=== PATIENT | female | born 1945 | race Caucasian/White ===

== ENCOUNTER 2016-10-04 17:10 | Inpatient (IN) | payer MEDICARE, OTHER ==
[~2016-10-04] VITALS: Ht 157.5 cm; Wt 109.0 kg
[~2016-10-04 17:10] MED LIST: ASPI81TA82 PO; CORE6.25 PO; ENAL10TA7 PO; MINO2.5 PO
[2016-10-04 17:12] VITALS: BP 185/87; PULSE 110; RESP 20; TEMP 100; O2SAT 93
[2016-10-04] MEDS ORDERED: SODIUM CHLOR 0.9% 1000 ML INJ 1,000 ML IV SCH (19:03)
--- NOTE | 2016-10-04 19:09 | PD ---
HPI Chief Complaint: Abdominal Pain Time Seen by Provider: 18:58 Travel History International Travel<30 days: No Contact w/Intl Traveler<30days: No Traveled to known affect area: No History of Present Illness HPI 70-year-old female presents with family members for evaluation of abdominal pain. Symptoms started this morning. The pain is an aching pain in the left lower quadrant which is constant with no aggravating or relieving factors. She endorses some nausea. Denies vomiting, diarrhea or constipation, dysuria, flank pain. She does have a chronic umbilical hernia which appears bigger than usual. She reports a history of hypertension and chronic kidney disease. Primary care physician is Dr. Monsivais. No history of diverticulosis or diverticulitis. No other complaints. PFSH Past Medical History Hx Anticoagulant Therapy: No Cancer: No Cardiovascular Problems: No Chemotherapy: No Congestive Heart Failure: Yes (POSSIBLE) Cerebrovascular Accident: No Diabetes: No Diminished Hearing: No Endocrine: No GERD: Yes Genitourinary: No Hepatitis: No Hiatal Hernia: No Hypertension: Yes Immune Disorder: Yes Musculoskeletal: Yes (SEVERE ARTHRITIS LEFT HIP; ) Neurologic: No Psychiatric: No Reproductive: No Respiratory: No Thyroid Disease: No ?: Unknown Menopausal: Yes Tubal Ligation: Yes Past Surgical History Abdominal Surgery: No AICD: No Arteriovenous Shunt: No Body Medical Devices: NONE Cardiac Surgery: No Ear Surgery: No Endocrine Surgery: No Eye Surgery: No Genitourinary Surgery: No Gynecologic Surgery: Yes (TUBAL LIGATION 35 YEARS AGO) Hysterectomy: No Insulin Pump: No Joint Replacement: No Oral Surgery: Yes (TOOTH EXTRACTRIONS 20 YEARS AGO; T & A) Pacemaker: No Thoracic Surgery: No Tonsillectomy: Yes Social History Alcohol Use: No Tobacco Use: Yes (LESS THAN A PACK A DAY) Substance Use: No Allergies-Medications (Allergen,Severity, Reaction): Coded Allergies: No Known Allergies (Unverified , 10/04/16) Reported Meds & Prescriptions Reported Meds & Active Scripts Active Reported Minoxidil 10 Mg Tab 5 Mg PO BID Amlodipine (Amlodipine Besylate) Unknown Strength Tab Unknown Dose PO DAILY Enalapril (Enalapril Maleate) 20 Mg Tab 20 Mg PO BID Carvedilol 6.25 Mg Tab 6.25 Mg PO BID Aspirin DR (Aspirin) 81 Mg Tabdr 81 Mg PO DAILY Review of Systems Except as stated in HPI: all other systems reviewed are Neg Physical Exam Narrative GENERAL: Well-developed well-nourished female in no acute distress SKIN: Warm and dry. HEAD: Atraumatic. Normocephalic. EYES: Pupils equal and round. No scleral icterus. No injection or drainage. ENT: No nasal bleeding or discharge. Mucous membranes pink and moist. NECK: Trachea midline. No JVD. CARDIOVASCULAR: Regular rate and rhythm. No murmur appreciated. RESPIRATORY: No accessory muscle use. Clear to auscultation. Breath sounds equal bilaterally. GASTROINTESTINAL: Abdomen soft, tender to palpation in left lower quadrant without guarding. There is a periumbilical hernia as well. MUSCULOSKELETAL: No obvious deformities. No edema NEUROLOGICAL: Awake and alert. No obvious cranial nerve deficits. Motor grossly within normal limits. Normal speech. PSYCHIATRIC: Appropriate mood and affect; insight and judgment normal. Data Data Last Documented VS Vital Signs Date Time Temp Pulse Resp B/P Pulse Ox O2 Delivery O2 Flow Rate FiO2 10/04/16 20:04 18 10/04/16 20:03 112 147/67 Room Air 10/04/16 19:34 98 10/04/16 17:12 100.0 Orders Complete Blood Count With Diff (10/04/16 19:03) Comprehensive Metabolic Panel (10/04/16 19:03) Lipase (10/04/16 19:03) Prothrombin Time / Inr (Pt) (10/04/16 19:03) Act Partial Throm Time (Ptt) (10/04/16 19:03) Urinalysis - C+S If Indicated (10/04/16 19:03) Ct Abd/Pel W Iv Contrast(Rout) (10/04/16 19:03) Iv Access Insert/Monitor (10/04/16 19:03) Ecg Monitoring (10/04/16 19:03) Oximetry (10/04/16 19:03) Ondansetron Inj (Zofran Inj) (10/04/16 19:15) Sodium Chlor 0.9% 1000 Ml Inj (Ns 1000 M (10/04/16 19:03) Sodium Chloride 0.9% Flush (Ns Flush) (10/04/16 19:15) Morphine Inj (Morphine Inj) (10/04/16 19:15) Lactic Acid Sepsis Protocol (10/04/16 19:03) Blood Culture (10/04/16 19:03) Ice / Cold Pack PRN (10/04/16 19:06) Iohexol 350 Inj (Omnipaque 350 Inj) (10/04/16 21:12) Ciprofloxacin 400 Mg Premix (Cipro 400 M (10/04/16 22:15) Metronidazole 500 Mg Inj (Flagyl 500 Mg (10/04/16 22:15) Admit Order (Ed Use Only) (10/04/16 22:25) Labs Laboratory Tests Test 10/04/16 10/04/16 10/04/16 10:01 19:55 21:15 Lactic Acid Level 1.2 mmol/L White Blood Count 11.4 TH/MM3 Red Blood Count 4.14 MIL/MM3 Hemoglobin 11.3 GM/DL Hematocrit 34.2 % Mean Corpuscular Volume 82.8 FL Mean Corpuscular Hemoglobin 27.3 PG Mean Corpuscular Hemoglobin 33.0 % Concent Red Cell Distribution Width 15.1 % Platelet Count 227 TH/MM3 Mean Platelet Volume 8.6 FL Neutrophils (%) (Auto) 81.1 % Lymphocytes (%) (Auto) 6.9 % Monocytes (%) (Auto) 9.6 % Eosinophils (%) (Auto) 1.7 % Basophils (%) (Auto) 0.7 % Neutrophils # (Auto) 9.2 TH/MM3 Lymphocytes # (Auto) 0.8 TH/MM3 Monocytes # (Auto) 1.1 TH/MM3 Eosinophils # (Auto) 0.2 TH/MM3 Basophils # (Auto) 0.1 TH/MM3 CBC Comment DIFF FINAL Differential Comment Prothrombin Time 10.5 SEC Prothromb Time International 1.0 RATIO Ratio Activated Partial 29.4 SEC Thromboplast Time Sodium Level 143 MEQ/L Potassium Level 3.8 MEQ/L Chloride Level 107 MEQ/L Carbon Dioxide Level 25.7 MEQ/L Anion Gap 10 MEQ/L Blood Urea Nitrogen 18 MG/DL Creatinine 1.08 MG/DL Estimat Glomerular Filtration 50 ML/MIN Rate Random Glucose 132 MG/DL Calcium Level 8.2 MG/DL Total Bilirubin 0.5 MG/DL Aspartate Amino Transf 8 U/L (AST/SGOT) Alanine Aminotransferase 7 U/L (ALT/SGPT) Alkaline Phosphatase 68 U/L Total Protein 6.5 GM/DL Albumin 3.3 GM/DL Lipase 74 U/L Urine Color YELLOW Urine Turbidity CLEAR Urine pH 5.5 Urine Specific [place] 1.035 Urine Protein TRACE mg/dL Urine Glucose (UA) NEG mg/dL Urine Ketones NEG mg/dL Urine Occult Blood NEG Urine Nitrite NEG Urine Bilirubin NEG Urine Urobilinogen LESS THAN 2.0 MG/DL Urine Leukocyte Esterase NEG Urine RBC 3 /hpf Urine WBC 1 /hpf Urine Squamous Epithelial 1 /hpf Cells Urine Mucus FEW /lpf Microscopic Urinalysis Comment CULT NOT INDICATED MDM Medical Decision Making Medical Screen Exam Complete: Yes Emergency Medical Condition: Yes Medical Record Reviewed: Yes Interpretation(s) CBC WBC 11.4 with 81% neutrophils Lactic acid 1.2 CMP creatinine 1.08, GFR 58, random glucose 132 CONCLUSION: 1. Severe but uncomplicated diverticulitis of the proximal sigmoid colon. 2. Complex mass of the right kidney of concern for a small renal cell carcinoma. Outpatient abdomen MRI with and without contrast recommended. 3. Benign-appearing cysts of the left kidney. 4. Large fat containing umbilical hernia. No bowel herniation. 5. Small stones in the gallbladder. 6. Moderate hiatal hernia. 7. Severe left hip osteoarthritis. No acute bony abnormality demonstrated. Differential Diagnosis Diverticulitis, incarcerated hernia, pyelonephritis, sepsis, colitis Narrative Course 70-year-old female for left lower quadrant abdominal pain since this morning. She has a low-grade fever and tachycardia. Plan is for basic lab work, CT of the abdomen and pelvis. The patient is being given IV fluids, morphine and Zofran. Discussed results of the CT with the patient and she is agreeable with admission. iv Flagyl and Cipro been ordered. Diagnosis Primary Impression: Diverticulitis Qualified Code: K57.92 - Diverticulitis of intestine without perforation or abscess without bleeding, unspecified part of intestinal tract Admitting Information Admitting Physician Requests: Admit Chidi Guerra Oct 04, 2016 19:09
[2016-10-04] MEDS ORDERED: MORPHINE SULFATE 8 MG/ML INJ IV PUSH ONE (19:15)
[2016-10-04] MEDS ORDERED: ONDANSETRON HCL 4 MG/2 ML VIAL IVP ONE (19:15)
[2016-10-04] MEDS ORDERED: SODIUM CHLORIDE 0.9% FLUSH 5 ML FLUSH IVF PRN (19:15)
[2016-10-04 19:34] VITALS: BP 189/85; PULSE 110; PULSE 19; RESP 18; O2SAT 98
[2016-10-04] MEDS ORDERED: CARV6.252 PO (19:50)
[2016-10-04] MEDS ORDERED: ENAL10TA7 PO (19:50)
[2016-10-04] MEDS ORDERED: ENAL20TA PO (19:50)
[2016-10-04] MEDS ORDERED: AMLO5TAB2 PO (19:50)
[2016-10-04] MEDS ORDERED: ASPI81TA5 PO (19:50)
[2016-10-04] MEDS ORDERED: MINO10TA PO (19:51)
[2016-10-04 20:03] VITALS: BP 147/67; PULSE 112; RESP 18
[2016-10-04 20:16] LABS: AUTOMATED NEUTROPHIL # 9.2 TH/MM3 (1.8-7.7); BASOPHIL # 0.1 TH/MM3 (0-0.2); BASOPHIL % 0.7 % (0.0-2.0); EOSINOPHIL # 0.2 TH/MM3 (0-0.4); EOSINOPHIL % 1.7 % (0.0-4.0); HEMATOCRIT 34.2 % (35.0-46.0); HEMO FLAGS DIFF FINAL; LYMPH % 6.9 % (9.0-44.0); LYMPHOCYTE # 0.8 TH/MM3 (1.0-4.8); MEAN CELL VOLUME 82.8 FL (80.0-100.0); MEAN CORPUSCULAR HEMOGLOBIN 27.3 PG (27.0-34.0); MONO % 9.6 % (0.0-8.0); NEUT % 81.1 % (16.0-70.0); PLATELET COUNT 227 TH/MM3 (150-450); RED BLOOD COUNT 4.14 MIL/MM3 (4.00-5.30); RED CELL DISTRIBUTION WIDTH 15.1 % (11.6-17.2); WHITE BLOOD COUNT 11.4 TH/MM3 (4.0-11.0)
[2016-10-04 20:27] LABS: APTT (PATIENT) 29.4 SEC (24.3-30.1); PROTHROMBIN TIME - PATIENT 10.5 SEC (9.8-11.6)
[2016-10-04 20:40] LABS: ANION GAP 10 MEQ/L (5-15); AST (GOT) 8 U/L (15-37); BICARBONATE 25.7 MEQ/L (21.0-32.0); BLOOD UREA NITROGEN 18 MG/DL (7-18); CHLORIDE 107 MEQ/L (98-107); GLOMERULAR FILTRATION RATE 50 ML/MIN (>89); POTASSIUM 3.8 MEQ/L (3.5-5.1); SODIUM (NA) 143 MEQ/L (136-145)
[2016-10-04 20:43] LABS: ALKALINE PHOSPHATASE 68 U/L (45-117); ALT (GPT) 7 U/L (10-53); TOTAL BILIRUBIN ADULT 0.5 MG/DL (0.2-1.0)
[2016-10-04] MEDS ORDERED: IOHEXOL 350 MG/ML 10 ML VIAL (for RAD DIAG) IV ONE (21:12)
--- NOTE | 2016-10-04 21:40 | RADRPT ---
EXAM DATE/TIME: 10/04/2016 21:08 [facility] COMPARISON: US KIDNEY/RENAL/BLADDER, December 12, 2013, 18:07. INDICATIONS : Left sided abdominal pain since yesterday. IV CONTRAST: 96 cc Omnipaque 350 (iohexol) IV ORAL CONTRAST: No oral contrast ingested. RADIATION DOSE: 22.44 CTDIvol (mGy) MEDICAL HISTORY : Congestive heart failure. Hypertension. Hernia, umbilical.Renal disease. SURGICAL HISTORY : Tubal ligation. ENCOUNTER: Initial ACUITY: 1 day PAIN SCALE: 4/10 LOCATION: Left lower quadrant TECHNIQUE: Volumetric scanning of the abdomen and pelvis was performed. Using automated exposure control and ad justment of the mA and/or kV according to patient size, radiation dose was kept as low as reasonably achievable to obtain optimal diagnostic quality images. FINDINGS: LOWER LUNGS: The visualized lower lungs are clear. LIVER: 3.1 cm cyst of the left hepatic lobe. There are several small stones in the gallbladder. No inflammat ory changes. No duct stone or ductal dilatation. SPLEEN: Normal size without lesion. PANCREAS: Within normal limits. KIDNEYS: There are several cysts of the left kidney measuring up to 2.3 cm in size. On the right, there is a f airly vague low density lesion posteromedially of the mid zone estimated at about 2.2 cm in size. It appears to have at approximately 14 mm enhancing component within it. ADRENAL GLANDS: Within normal limits. VASCULAR: There is no aortic aneurysm. BOWEL/MESENTERY: There is severe diverticulitis of the proximal sigmoid colon in the anterior aspect of the left lower quadrant. No drainable fluid. No free air. No obstruction. The patient has a moderate-sized hiatal h ernia. ABDOMINAL WALL: There is an umbilical hernia that measures approximately 2 cm across. About 6.2 x 7.5 cm collection o f fat has herniated through. No bowel herniation. RETROPERITONEUM: There is no lymphadenopathy. BLADDER: No wall thickening or mass. REPRODUCTIVE: Within normal limits. INGUINAL: There is no lymphadenopathy or hernia. MUSCULOSKELETAL: No acute bony abnormality demonstrated. Severe osteoarthritis seen of the left hip. CONCLUSION: 1. Severe but uncomplicated diverticulitis of the proximal sigmoid colon. 2. Complex mass of the right kidney of concern for a small renal cell carcinoma. Outpatient abdomen M RI with and without contrast recommended. 3. Benign-appearing cysts of the left kidney. 4. Large fat containing umbilical hernia. No bowel herniation. 5. Small stones in the gallbladder. 6. Moderate hiatal hernia. 7. Severe left hip osteoarthritis. No acute bony abnormality demonstrated. Jeremy Britton MD on October 04, 2016 at 21:32 Board Certified Radiologist. This report was verified electronically.
[2016-10-04 22:10] LABS: BLOOD, URINE NEG (NEG); GLUCOSE,URINE NEG (NEG); KETONE, URINE NEG (NEG); MUCUS URINE FEW /lpf (OCC); NITRITE,URINE NEG (NEG); PH, URINE 5.5 (5.0-8.5); SQUAMOUS EPITHELIAL CELL URINE 1 /hpf (0-5); URINE COLOR YELLOW (YELLW/STRAW)
[2016-10-04 22:11] LABS: COMMENT (UR) CULT NOT INDICATED; CULTURE IF INDICATED CULT NOT INDICATED
[2016-10-04] MEDS ORDERED: metroNIDAZOLE 500 MG INJ 100 ML IV ONE (22:15)
[2016-10-04] MEDS ORDERED: CIPROFLOXACIN 400 MG PREMIX 200 ML IV ONE (22:15)
[2016-10-04 22:30] VITALS: BP 160/90; PULSE 111; RESP 16; O2SAT 94
[2016-10-04] MEDS ORDERED: ACETAMINOPHEN 325 MG TAB PO PRN (22:30)
[2016-10-04] MEDS ORDERED: MORPHINE SULFATE 4 MG/ML INJ IV PRN (22:30)
[2016-10-04] MEDS ORDERED: SODIUM CHLORIDE 0.9% FLUSH 5 ML FLUSH FLUSH PRN (22:30)
[2016-10-04] MEDS ORDERED: BISACODYL 10 MG SUPP PR PRN (22:30)
[2016-10-04] MEDS ORDERED: ONDANSETRON HCL 4 MG/2 ML VIAL IVP PRN (22:30)
--- NOTE | 2016-10-04 22:32 | HHI.HP ---
[facility] Heraclio Christian MD Admission Diagnosis Diverticulitis Diagnoses: (1) Sepsis Diagnosis: Principal (2) Diverticulitis Diagnosis: Principal (3) Renal insufficiency Diagnosis: Principal (4) HTN (hypertension) Diagnosis: Principal (5) Renal mass, right Diagnosis: Principal Travel History International Travel<30 Days: No Contact w/Intl Traveler <30 Da: No Traveled to Known Affected Are: No History of Present Illness This is a 70-year-old female with a PMH of Arthritis, HTN and Hyperlipidemia who was brought to the ER by family secondary to complaints of severe LLQ abdominal pain starting earlier today. Reports associated nausea but no vomiting. Denies fever, chills or diarrhea. On arrival, BP 185/87, HR 110, O2 sat 93% on RA, Temp 100.0. WBC 11.4. Creatinine 1.08, previously 1.23 on . UA negative. CT Abd/Pelvis w/ severe but uncomplicated diverticulitis proximal sigmoid colon, complex mass of right kidney concerning for small renal cell carcinoma with outpatient MRI recommended, large fat-containing umbilical hernia. S/p Cipro/Flagyl in ER. Review of Systems Except as stated in HPI: all other systems reviewed are Neg ROS: 14 point review of systems otherwise negative. Past Family Social History Past Medical History PMH: Arthritis, HTN and Hyperlipidemia Past Surgical History PAST SURGICAL HISTORY: Tubal Ligation, Dental Extraction, Tonsillectomy Allergies: Coded Allergies: No Known Allergies (Unverified , 10/04/16) Family History PAST FAMILY HISTORY: Reviewed. No h/o DM or CAD Social History PAST SOCIAL HISTORY: Positive for tobacco abuse. Negative for alcohol or drugs. Physical Exam Vital Signs Vital Signs Date Time Temp Pulse Resp B/P Pulse Ox O2 Delivery O2 Flow Rate FiO2 10/04/16 20:04 18 10/04/16 20:03 112 18 147/67 Room Air 10/04/16 19:35 18 10/04/16 19:34 110 18 189/85 98 10/04/16 17:12 100.0 110 20 185/87 93 Room Air Physical Exam PE: GENERAL: Pleasant elderly white female in no acute distress, sitting up in stretcher. Family at bedside. HEENT: PERRLA, EOMI. No scleral icterus or conjunctival pallor. No lid lag or facial droop. CARDIOVASCULAR: Regular rate and rhythm. No obvious murmurs to auscultation. No chest tenderness to palpation. RESPIRATORY: No obvious rhonchi or wheezing. Clear to auscultation. Breath sounds equal bilaterally. GASTROINTESTINAL: Abdomen soft, LLQ and left flank tenderness to palpation, nondistended. BS normal. MUSCULOSKELETAL: Extremities without clubbing, cyanosis, or edema. No obvious deformities. NEUROLOGICAL: Awake, alert and oriented x4. No focal neurologic deficits. Moving both upper and lower extremities spontaneously. Laboratory Laboratory Tests Test 10/04/16 10/04/16 10/04/16 10:01 19:55 21:15 Lactic Acid Level 1.2 White Blood Count 11.4 Red Blood Count 4.14 Hemoglobin 11.3 Hematocrit 34.2 Mean Corpuscular Volume 82.8 Mean Corpuscular Hemoglobin 27.3 Mean Corpuscular Hemoglobin 33.0 Concent Red Cell Distribution Width 15.1 Platelet Count 227 Mean Platelet Volume 8.6 Neutrophils (%) (Auto) 81.1 Lymphocytes (%) (Auto) 6.9 Monocytes (%) (Auto) 9.6 Eosinophils (%) (Auto) 1.7 Basophils (%) (Auto) 0.7 Neutrophils # (Auto) 9.2 Lymphocytes # (Auto) 0.8 Monocytes # (Auto) 1.1 Eosinophils # (Auto) 0.2 Basophils # (Auto) 0.1 CBC Comment DIFF FINAL Differential Comment Prothrombin Time 10.5 Prothromb Time International 1.0 Ratio Activated Partial 29.4 Thromboplast Time Sodium Level 143 Potassium Level 3.8 Chloride Level 107 Carbon Dioxide Level 25.7 Anion Gap 10 Blood Urea Nitrogen 18 Creatinine 1.08 Estimat Glomerular Filtration 50 Rate Random Glucose 132 Calcium Level 8.2 Total Bilirubin 0.5 Aspartate Amino Transf 8 (AST/SGOT) Alanine Aminotransferase 7 (ALT/SGPT) Alkaline Phosphatase 68 Total Protein 6.5 Albumin 3.3 Lipase 74 Urine Color YELLOW Urine Turbidity CLEAR Urine pH 5.5 Urine Specific [place] 1.035 Urine Protein TRACE Urine Glucose (UA) NEG Urine Ketones NEG Urine Occult Blood NEG Urine Nitrite NEG Urine Bilirubin NEG Urine Urobilinogen LESS THAN 2.0 Urine Leukocyte Esterase NEG Urine RBC 3 Urine WBC 1 Urine Squamous Epithelial 1 Cells Urine Mucus FEW Microscopic Urinalysis Comment CULT NOT INDICATED Date/Time Procedure Status Source Growth 10/04/16 20:00 Aerobic Blood Culture Received Blood Peripheral Pending 10/04/16 20:00 Anaerobic Blood Culture Received Blood Peripheral Pending Result Diagram: 10/04/16195410/04/161954 Assessment and Plan Problem List: (1) Sepsis ICD Code: A41.9 Status: Acute (2) Diverticulitis ICD Code: K57.92 Status: Acute (3) Renal insufficiency ICD Code: N28.9 Status: Acute (4) Renal mass, right ICD Code: N28.89 Status: Acute (5) HTN (hypertension) ICD Code: I10 Status: Acute Assessment and Plan A/P: 1. Sepsis: Temp 100.0, HR 110, Source-Diverticulitis. S/p Blood Cultures, IV Cipro/Flagyl in ER. Follow up cultures, continue IV Abx, IVF for hydration. 2. Diverticulitis: CT Abd/Pelvis w/ severe but uncomfortable diverticulitis the proximal sigmoid colon, images reviewed by me. Continue IV Abx as above. Analgesics/antiemetics as needed. 3. Renal Insufficiency: Chronic. Creatinine 1.08, previously 1.23 on . U/a negative for UTI. Continue IVF, repeat labs in am. Hold Enalapril 4. Right Renal Mass: CT Abd/Pelvis w/ small right renal mass concerning for renal cell carcinoma, recommendation for outpatient MRI. Findings discussed w/ patient and family, they will follow w/ PCP for further evaluation. 5. HTN: BP 180's on arrival, likely compounded by pain complaints, currently 140's systolic. Will monitor. 6. DVT Prophylaxis: SCD/teds. 7. Social work for DC planning as needed. 8. Case discussed at length with ER physician. Physician Certification 2 Midnight Certification Type: Admission for Inpatient Services Order for Inpatient Services The services are ordered in accordance with Medicare regulations or non- Medicare payer requirements, as applicable. In the case of services not specified as inpatient-only, they are appropriately provided as inpatient services in accordance with the 2-midnight benchmark. Estimated LOS (days): 2 days is the estimated time the patient will need to remain in the hospital, assuming treatment plan goals are met and no additional complications. Post-Hospital Plan: Not yet determined Problem Qualifiers (1) Diverticulitis: Qualified Code: K57.92 - Diverticulitis of intestine without perforation or abscess without bleeding, unspecified part of intestinal tract Jesusita Conn MD Oct 04, 2016 22:31
[2016-10-04] MEDS: SODIUM CHLOR 0.9% 1000 ML INJ 1,000 ML IV SCH (22:49)
[2016-10-05] VITALS (8 sets, daily range): BP systolic 113–165; BP diastolic 58–82; PULSE 83–104; RESP 16–21; TEMP 96.5–98.3; O2SAT 91–97
[2016-10-05] MEDS: metroNIDAZOLE 500 MG INJ 100 ML IV SCH ×3 (04:48→20:50)
[2016-10-05 05:34] LABS: ALT (GPT) 8 U/L (10-53); ANION GAP 10 MEQ/L (5-15); AST (GOT) 5 U/L (15-37); BLOOD UREA NITROGEN 16 MG/DL (7-18); CHLORIDE 106 MEQ/L (98-107); GLOMERULAR FILTRATION RATE 51 ML/MIN (>89); POTASSIUM 3.8 MEQ/L (3.5-5.1); SODIUM (NA) 142 MEQ/L (136-145)
[2016-10-05 05:37] LABS: ALKALINE PHOSPHATASE 65 U/L (45-117); TOTAL BILIRUBIN ADULT 0.6 MG/DL (0.2-1.0)
[2016-10-05] MEDS: SODIUM CHLORIDE 0.9% FLUSH 5 ML FLUSH FLUSH SCH ×2 (08:03→20:56)
[2016-10-05] MEDS: SODIUM CHLOR 0.9% 1000 ML INJ 1,000 ML IV SCH ×2 (08:03→18:22)
[2016-10-05] MEDS: CARVEDILOL 6.25 MG TAB PO SCH ×2 (08:03→20:50)
[2016-10-05] MEDS: CIPROFLOXACIN 400 MG PREMIX 200 ML IV SCH ×2 (08:03→20:50)
[2016-10-05 09:53] LABS: AUTOMATED NEUTROPHIL # 8.2 TH/MM3 (1.8-7.7); BASOPHIL # 0.1 TH/MM3 (0-0.2); BASOPHIL % 0.6 % (0.0-2.0); EOSINOPHIL # 0.1 TH/MM3 (0-0.4); EOSINOPHIL % 0.8 % (0.0-4.0); HEMATOCRIT 34.4 % (35.0-46.0); HEMO FLAGS DIFF FINAL; LYMPH % 7.1 % (9.0-44.0); LYMPHOCYTE # 0.7 TH/MM3 (1.0-4.8); MEAN CELL VOLUME 82.2 FL (80.0-100.0); MEAN CORPUSCULAR HEMOGLOBIN 27.9 PG (27.0-34.0); MEAN CORPUSCULAR HGB CONC 33.9 % (32.0-36.0); NEUT % 79.5 % (16.0-70.0); PLATELET COUNT 212 TH/MM3 (150-450); RED BLOOD COUNT 4.19 MIL/MM3 (4.00-5.30); WHITE BLOOD COUNT 10.3 TH/MM3 (4.0-11.0)
[2016-10-05] MEDS: ACETAMINOPHEN/HYDROcodone 325 MG/5 MG TAB PO PRN ×3 (11:34→23:33)
--- NOTE | 2016-10-05 11:50 | HHI.PR ---
Subjective Remarks started out yesterday with left lower quadrant abdominal pain no nausea or vomiting some fever and chills now she feels much better, hungry, wanting to eat, + flatus, came to ER- noted to have an umbilical hernia- this is chronic for months but they noted more prominent and protruded yesterday with discoloration ER made attempts to reduce it- per family decrease patient now having mild pain due to "they keep on pushing and pushing" never had screening colonoscopy Objective Vitals Vital Signs Date Time Temp Pulse Resp B/P Pulse Ox O2 Delivery O2 Flow Rate FiO2 10/05/16 08:00 98.0 92 16 113/69 93 10/05/16 04:30 96.5 104 20 124/58 94 10/05/16 02:00 100 16 120/71 95 Room Air 10/04/16 22:30 111 16 160/90 94 Room Air 10/04/16 20:04 18 10/04/16 20:03 112 18 147/67 Room Air 10/04/16 19:35 18 10/04/16 19:34 110 18 189/85 98 10/04/16 17:12 100.0 110 20 185/87 93 Room Air I/O 10/04/16 10/04/16 10/04/16 10/05/16 10/05/16 10/05/16 07:00 15:00 23:00 07:00 15:00 23:00 Intake Total 360 ml Balance 360 ml Intake Oral 60 ml IV Total 300 ml # Voids 1 # Bowel Movements 0 Result Diagram: 10/05/16 0917 10/05/16 0355 Imaging Last Impressions Abdomen/Pelvis CT 10/04/16 1903 Signed Impressions: Service Date/Time: Tuesday, October 04, 2016 21:08 - CONCLUSION: 1. Severe but uncomplicated diverticulitis of the proximal sigmoid colon. 2. Complex mass of the right kidney of concern for a small renal cell carcinoma. Outpatient abdomen MRI with and without contrast recommended. 3. Benign-appearing cysts of the left kidney. 4. Large fat containing umbilical hernia. No bowel herniation. 5. Small stones in the gallbladder. 6. Moderate hiatal hernia. 7. Severe left hip osteoarthritis. No acute bony abnormality demonstrated. Jeremy Britton MD Objective Remarks awake and alert, NAD anicteric lungs clear regular rhythm abdomen + umbilical hernia, abdomen soft, flabby, good bowel sounds no guarding or tenderness extremities good peripheral pulses A/P Problem List: (1) Sepsis ICD Code: A41.9 Status: Acute (2) Diverticulitis ICD Code: K57.92 Status: Acute (3) Renal insufficiency ICD Code: N28.9 Status: Acute (4) Renal mass, right ICD Code: N28.89 Status: Acute (5) HTN (hypertension) ICD Code: I10 Status: Acute Assessment and Plan A/P: Sepsis: Temp 100.0, HR 110, Source-Diverticulitis. S/p Blood Cultures, Follow up cultures, continue IV Abx- ciprofloxacin + flagyl , IVF for hydration. Diverticulitis: CT Abd/Pelvis w/ severe diverticulitis the proximal sigmoid colon, Continue IV Abx as above. Analgesics/antiemetics as needed. per patient = first episode. Never had a screening colonoscopy Umbilical Hernia- on presentation ? incarcerated as family states bluish and ER - reduce it monitor. d/w them if develops severe pain,N/V to call nurse Renal Insufficiency: Chronic. Creatinine 1.08, previously 1.23 on 12/13/13. U/ a negative for UTI. Continue IVF,Hold Enalapril Incidental Right Renal Mass: concerning for renal cell carcinoma, recommendation for outpatient MRI. Findings discussed w/ patient and family, they will follow w/ PCP for further evaluation. HTN: BP 180's on arrival, likely compounded by pain complaints, improved. Will monitor. DVT Prophylaxis: SCD/teds. Social work for DC planning as needed. Lovenox for DVT prophylaxis d/w patient and daughter if continues to feel well- start diet this pm- liquids and monitor Problem Qualifiers (1) Diverticulitis: Qualified Code: K57.92 - Diverticulitis of intestine without perforation or abscess without bleeding, unspecified part of intestinal tract Natalio Chowdhury MD Oct 05, 2016 11:49
[2016-10-05] MEDS ORDERED: ENOXAPARIN SODIUM 40 MG/0.4 ML SYRINGE SQ SCH (12:00)
[2016-10-05] MEDS ORDERED: PANTOPRAZOLE SODIUM 40 MG VIAL IV PUSH SCH (13:00)
[2016-10-06 04:00] VITALS: BP 159/72; PULSE 89; RESP 20; TEMP 96.2; O2SAT 100
[2016-10-06] MEDS: metroNIDAZOLE 500 MG INJ 100 ML IV SCH (04:12)
[2016-10-06] MEDS: SODIUM CHLOR 0.9% 1000 ML INJ 1,000 ML IV SCH (04:13)
[2016-10-06 08:00] VITALS: BP 149/70; PULSE 86; RESP 18; TEMP 99; O2SAT 95
[2016-10-06] MEDS: CIPROFLOXACIN 400 MG PREMIX 200 ML IV SCH (08:18)
[2016-10-06] MEDS: SODIUM CHLORIDE 0.9% FLUSH 5 ML FLUSH FLUSH SCH (08:18)
[2016-10-06] MEDS: CARVEDILOL 6.25 MG TAB PO SCH (08:18)
[2016-10-06] MEDS: ACETAMINOPHEN/HYDROcodone 325 MG/5 MG TAB PO PRN (08:18)
--- NOTE | 2016-10-06 10:54 | HHI.PR ---
Subjective Remarks no abdominal pain, nausea or vomiting + passing put lots of flatus feeling much much better- up and ambulating seen with family f at bedside Objective Vitals Vital Signs Date Time Temp Pulse Resp B/P Pulse Ox O2 Delivery O2 Flow Rate FiO2 10/06/16 08:00 99.0 86 18 149/70 95 10/06/16 04:00 96.2 89 20 159/72 100 10/05/16 23:43 98.0 90 19 141/65 91 10/05/16 20:00 98.3 86 21 141/66 96 10/05/16 19:50 83 10/05/16 16:52 20 10/05/16 16:00 98.3 97 16 140/60 97 10/05/16 12:00 98.1 94 18 165/82 96 I/O 10/05/16 10/05/16 10/05/16 10/06/16 10/06/16 10/06/16 07:00 15:00 23:00 07:00 15:00 23:00 Intake Total 360 ml 635 ml 958 ml 670 ml Output Total 400 ml 900 ml 600 ml Balance 360 ml 235 ml 58 ml 70 ml Intake Oral 60 ml 240 ml 240 ml 240 ml IV Total 300 ml 395 ml 718 ml 430 ml Output Urine Total 400 ml 900 ml 600 ml # Voids 1 1 # Bowel Movements 0 0 0 0 Result Diagram: 10/05/16 0917 10/05/16 0355 Imaging Last Impressions Abdomen/Pelvis CT 10/04/16 1903 Signed Impressions: Service Date/Time: Tuesday, October 04, 2016 21:08 - CONCLUSION: 1. Severe but uncomplicated diverticulitis of the proximal sigmoid colon. 2. Complex mass of the right kidney of concern for a small renal cell carcinoma. Outpatient abdomen MRI with and without contrast recommended. 3. Benign-appearing cysts of the left kidney. 4. Large fat containing umbilical hernia. No bowel herniation. 5. Small stones in the gallbladder. 6. Moderate hiatal hernia. 7. Severe left hip osteoarthritis. No acute bony abnormality demonstrated. Jeremy Britton MD Objective Remarks awake and alert, NAD anicteric lungs clear regular rhythm abdomen + umbilical hernia, abdomen soft, flabby, good bowel sounds no guarding or tenderness extremities good peripheral pulses A/P Problem List: (1) Sepsis ICD Code: A41.9 Status: Acute (2) Diverticulitis ICD Code: K57.92 Status: Acute (3) Renal insufficiency ICD Code: N28.9 Status: Acute (4) Renal mass, right ICD Code: N28.89 Status: Acute (5) HTN (hypertension) ICD Code: I10 Status: Acute Assessment and Plan A/P: Sepsis: - T down. cultures negative - so far. -Diverticulitis. change to po ciprofloxacin + flagyl , Diverticulitis: CT Abd/Pelvis w/ severe diverticulitis the proximal sigmoid colon, Continue IV Abx as above. Analgesics/antiemetics as needed. per patient = first episode. Never had a screening colonoscopy- advised to have one done as OP throught PCP referral afeter this bout of inflammation change to po Flagyl and cipro po x 9 days Umbilical Hernia-chronic - OP ff up with a referral to surgeron- evaluate for elective repair d/w then signs of incarceration or strangulation- severe pain, N/V, discolotation Renal Insufficiency: Chronic. Creatinine 1.08- better, previously 1.23 on 12/13. U/a negative for UTI. Incidental Right Renal Mass: concerning for renal cell carcinoma, recommendation for outpatient MRI. Findings discussed w/ patient and family, they will follow w/ PCP for further evaluation. OP ff up for work up through PCP HTN: improved. continue home meds on- MURALI. Amloidpine and coreg DVT Prophylaxis: SCD/teds. DC today diet heart healthy, high fibre diet Activity as tolerated OP ff up with PCP- Dr. sky with referral to surgeon for evaluation- ? elective surgery of umbilical hernia and evaluation of renal mass OP GI for colonoscopy Advise patient to come to ER f develops severe abdominal apin, nausea or vomiting Meds- ciprofloxacin 5000 mg po bid and Flagyl 500 mg po q 8 x 7 days continue home meds for BP Problem Qualifiers (1) Diverticulitis: Qualified Code: K57.92 - Diverticulitis of intestine without perforation or abscess without bleeding, unspecified part of intestinal tract Natalio Chowdhury MD Oct 06, 2016 10:54
[2016-10-06] MEDS ORDERED: METR-1 PO (11:19)
[2016-10-06] MEDS ORDERED: CIPR-9 PO (11:19)
[2016-10-06] MEDS ORDERED: HYDR-3516 PO (11:21)
[2016-10-06 12:00] VITALS: BP 145/77; PULSE 88; RESP 18; TEMP 98.8; O2SAT 95
[2016-10-06] MEDS ORDERED: metroNIDAZOLE 500 MG TAB PO SCH (14:00)
[2016-10-06] MEDS ORDERED: CIPROFLOXACIN 500 MG TAB PO SCH (21:00)
[2016-10-07] MEDS ORDERED: amLODIPine BESYLATE 5 MG TAB PO SCH (09:00)
== END 2016-10-06 14:11 | disposition home or self-care (01) | DRG 872 ==
LOC: NEPA 17:10 → NEDA 22:27 → N07A 10-05 04:44
PROVIDERS: ADMIT Internal Medicine; ATTEND Internal Medicine
DX: A41.9 Sepsis, unspecified organism (principal); K57.32 Diverticulitis of large intestine without perforation or abscess without bleeding; I12.9 Hypertensive chronic kidney disease with stage 1 through stage 4 chronic kidney disease, or unspecified chronic kidney disease; K21.9 Gastro-esophageal reflux disease without esophagitis; M16.12 Unilateral primary osteoarthritis, left hip; F17.210 Nicotine dependence, cigarettes, uncomplicated; E78.5 Hyperlipidemia, unspecified; N28.89 Other specified disorders of kidney and ureter; N18.9 Chronic kidney disease, unspecified; K42.9 Umbilical hernia without obstruction or gangrene
CPT/HCPCS: 74177; 80053; 81001; 83605; 83690; 85025; 85610; 85730; 87040; 96374; 96375; C9113; J0744; J1650; J2270; J2405; J7030; Q9967

== ENCOUNTER → 2016-12-12 | Day surgery (SDC) | payer MEDICARE, OTHER ==
[~2016-12-12] MED LIST changes: +AMLO5TAB2 PO; +ASPI81TA5 PO; -ASPI81TA82 PO; +CARV6.252 PO; +CIPR-9 PO; -CORE6.25 PO; -ENAL10TA7 PO; +ENAL20TA PO; +HYDR-3516 PO; +LACTATED RINGER'S 1000 ML INJ 1,000 ML ONE; +METR-1 PO; -MINO2.5 PO; +PROPOFOL 500 MG/50 ML BTL IV ONE
--- NOTE | 2016-12-12 09:42 | GIPROC ---
[facility] [address] [facility], [address] COLONOSCOPY PROCEDURE REPORT EXAM DATE: 12/12/2016 PATIENT NAME: Katiana Toney MR #: [id number] BIRTHDATE: 1945 ENDOSCOPIST: Mary Garcia MD ORDER #: [id number] GLUE SPREADER: Clarissa Mo MANAGER CONTACT and Yolis Bowers RN STATUS: outpatient INDICATIONS: The patient is a 71 yr old female here for a colonoscopy due to average risk patient for colon cancer PROCEDURE PERFORMED: Colonoscopy with polypectomy Colonoscopy with ablation MEDICATIONS: None and Per Anesthesia. PREP QUALITY: The [place] Bowel Prep Score was Right colon 2, Mid colon 2, and Left colon 1. Total = 5. ESTIMATED BLOOD LOSS: None CONSENT: The patient understands the risks and benefits of the procedure and understands that these risks include, but are not limited to: sedation, allergic reaction, infection, perforation and/or bleeding. Alternative means of evaluation and treatment include, among others: physical exam, x-rays, and/or surgical intervention. The patient elects to proceed with this endoscopic procedure. medical equipment was checked for proper function. Hand hygiene and appropriate measures for infection prevention was taken. After the risks, benefits and alternatives of the procedure were thoroughly explained, Informed consent was verified, confirmed and timeout was successfully executed by the treatment team. A digital exam revealed external hemorrhoids The [id number] ([id number]) endoscope was introduced through the anus and advanced to the cecum, which was identified by both the appendix and ileocecal valve. The instrument was then slowly withdrawn as the colon was fully examined. COLON FINDINGS: Severe diverticulosis was noted in the sigmoid colon. No bleeding was noted from the diverticulosis. A polypoid shaped sessile polyp measuring 20 mm in size was found in the transverse colon. A polypectomy was performed using snare cautery. The resection was incomplete and the polyp tissue was completely retrieved. Destruction of tumor/mass via ablation was attempted. Bleeding from maneuver treated with cautery. Retroflexed views revealed internal hemorrhoids and Retroflexed views revealed medium internal hemorrhoids The scope was then completely withdrawn from the patient and the procedure terminated. PROCEDURE WITHDRAWAL TIME:10minutes ADVERSE EVENTS: There were no complications. IMPRESSIONS: 1. Severe diverticulosis was noted in the sigmoid colon 2. A sessile polyp measuring 20 mm in size was found in the transverse colon; polypectomy was performed using snare cautery; Destruction of tumor/mass via ablation was attempted 3. Retroflexed views revealed internal hemorrhoids 4. Retroflexed views revealed medium internal hemorrhoids 5. Revealed external hemorrhoids RECOMMENDATIONS: 1. Await biopsy results. Biopsy results will not be ready for 7-10 days. If you don't hear from us in two weeks, call our office for results. 2. Benefiber 2 tsp daily 3. Continue surveillance 4. Yearly hemoccult 5. No seeds, nuts and popcorn in diet RECALL: Return 6 months Colonoscopy, pending biopsy results Mary Garcia MD eSigned: Mary Garcia MD 12/12/2016 9:42 AM cc: [facility] and Heraclio Christian M.D. PATIENT NAME: Katiana Toney MR#: [id number]
== END | disposition home or self-care (01) ==
LOC: ESDC 07:39
PROVIDERS: ATTEND Internal Medicine Gastroenterology
DX: Z12.11 Encounter for screening for malignant neoplasm of colon (principal); K57.90 Diverticulosis of intestine, part unspecified, without perforation or abscess without bleeding; D12.3 Benign neoplasm of transverse colon; K64.8 Other hemorrhoids; K64.4 Residual hemorrhoidal skin tags
CPT/HCPCS: 00810; 45382; 45385; 88305; J7120

== ENCOUNTER 2017-02-03 10:26 | Observation (INO) | payer MEDICARE, OTHER ==
[~2017-02-03] VITALS: Ht 157.5 cm; Wt 107.5 kg
[2017-02-03] VITALS (12 sets, daily range): BP systolic 108–166; BP diastolic 57–84; PULSE 69–89; RESP 16–23; TEMP 97.6–98.9; O2SAT 92–97
[~2017-02-03 10:26] MED LIST changes: -LACTATED RINGER'S 1000 ML INJ 1,000 ML ONE; -PROPOFOL 500 MG/50 ML BTL IV ONE
[2017-02-03] MEDS ORDERED: SODIUM CHLORIDE 0.9% FLUSH 10 ML FLUSH IV FLUSH PRN (10:45)
[2017-02-03] MEDS ORDERED: ONDANSETRON HCL 4 MG/2 ML VIAL IVP ONE (10:45)
[2017-02-03] MEDS ORDERED: FAMOTIDINE 20 MG/2 ML VIAL IV PUSH ONE (10:45)
[2017-02-03] MEDS ORDERED: SODIUM CHLORIDE 0.9% FLUSH 10 ML FLUSH IVF PRN (10:45)
--- NOTE | 2017-02-03 10:47 | PD ---
HPI Chief Complaint: Chest Pain Time Seen by Provider: 10:45 Travel History International Travel<30 days: No Contact w/Intl Traveler<30days: No Traveled to known affect area: No History of Present Illness HPI 71-year-old female with history of hypertension, CHF, presents to the ER today brought in by her daughter because family position recommended evaluation for a 5 day history of epigastric abdominal pain with radiation up to the substernal area which the patient describes as a burning discomfort and pressure with nausea and vomiting exacerbated by eating and laying down. She denies any shortness of breath, fevers, diarrhea, or any other symptoms. Modifying Factors: None Associated Signs & Symptoms: Epigastric and substernal discomfort, nausea and vomiting Risk Factors: Worse with eating PFSH Past Medical History Hx Anticoagulant Therapy: No Cancer: No Cardiovascular Problems: Yes (CHF) Chemotherapy: No Congestive Heart Failure: Yes (POSSIBLE) Cerebrovascular Accident: No Diabetes: No Diminished Hearing: No Endocrine: No Gastrointestinal Disorders: Yes (ACID REFLUX; EXCESSIVE FLATUS) GERD: Yes Genitourinary: No Hepatitis: No Hiatal Hernia: No Hypertension: Yes Immune Disorder: Yes Musculoskeletal: Yes (SEVERE ARTHRITIS LEFT HIP; ) Neurologic: No Psychiatric: No Reproductive: No Respiratory: No Thyroid Disease: No Menopausal: Yes Tubal Ligation: Yes Past Surgical History Abdominal Surgery: No AICD: No Arteriovenous Shunt: No Body Medical Devices: NONE Cardiac Surgery: No Ear Surgery: No Endocrine Surgery: No Eye Surgery: No Genitourinary Surgery: No Gynecologic Surgery: Yes (TUBAL LIGATION 35 YEARS AGO) Hysterectomy: No Insulin Pump: No Joint Replacement: No Oral Surgery: Yes (TOOTH EXTRACTRIONS 20 YEARS AGO; T & A) Pacemaker: No Thoracic Surgery: No Tonsillectomy: Yes Other Surgery: Yes Social History Alcohol Use: No Tobacco Use: Yes (LESS THAN A PACK A DAY) Substance Use: No Allergies-Medications (Allergen,Severity, Reaction): Coded Allergies: No Known Allergies (Unverified , 02/03/17) Reported Meds & Prescriptions Reported Meds & Active Scripts Active Reported Minoxidil 10 Mg Tab 5 Mg PO BID Carvedilol 12.5 Mg Tab 12.5 Mg PO BID Amlodipine (Amlodipine Besylate) 5 Mg Tab 5 Mg PO DAILY Enalapril (Enalapril Maleate) 20 Mg Tab 20 Mg PO BID Aspirin DR (Aspirin) 81 Mg Tabdr 81 Mg PO DAILY Review of Systems Except as stated in HPI: all other systems reviewed are Neg Physical Exam Narrative GENERAL: Well-developed elderly white female patient currently in mild distress at awake and oriented 3. SKIN: Focused skin assessment warm/dry. HEAD: Atraumatic. Normocephalic. EYES: Pupils equal and round. No scleral icterus. No injection or drainage. ENT: No nasal bleeding or discharge. Mucous membranes pink and moist. NECK: Trachea midline. No JVD. CARDIOVASCULAR: Regular rate and rhythm. No murmur appreciated. RESPIRATORY: No accessory muscle use. Clear to auscultation. Breath sounds equal bilaterally. GASTROINTESTINAL: Abdomen soft, mild epigastric discomfort with palpation without guarding or rebound, nondistended. Hepatic and splenic margins not palpable. MUSCULOSKELETAL: No obvious deformities. No clubbing. No cyanosis. No edema. NEUROLOGICAL: Awake and alert. No obvious cranial nerve deficits. Motor grossly within normal limits. Normal speech. PSYCHIATRIC: Appropriate mood and affect; insight and judgment normal. Data Data Last Documented VS Vital Signs Date Time Temp Pulse Resp B/P Pulse Ox O2 Delivery O2 Flow Rate FiO2 02/03/17 10:57 76 19 141/60 95 Room Air 125/60 02/03/17 10:50 2.0 02/03/17 10:28 98.9 Orders Electrocardiogram (02/03/17 10:39) Ckmb (Isoenzyme) Profile (02/03/17 10:39) Complete Blood Count With Diff (02/03/17 10:39) Comprehensive Metabolic Panel (02/03/17 10:39) Magnesium (Mg) (02/03/17 10:39) Prothrombin Time / Inr (Pt) (02/03/17 10:39) Act Partial Throm Time (Ptt) (02/03/17 10:39) Troponin I (02/03/17 10:39) Chest, Single Ap (02/03/17 10:39) Ecg Monitoring (02/03/17 10:39) Bilateral Bp Monitoring (02/03/17 10:39) Iv Access Insert/Monitor (02/03/17 10:39) Oximetry (02/03/17 10:39) Oxygen Administration (02/03/17 10:39) Sodium Chloride 0.9% Flush (Ns Flush) (02/03/17 10:45) Lipase (02/03/17 10:45) Ondansetron Inj (Zofran Inj) (02/03/17 10:45) Sodium Chloride 0.9% Flush (Ns Flush) (02/03/17 10:45) Famotidine Inj (Pepcid Inj) (02/03/17 10:45) Admit Order (Ed Use Only) (02/03/17 12:05) Labs Laboratory Tests Test 02/03/17 11:00 White Blood Count 5.2 TH/MM3 Red Blood Count 4.27 MIL/MM3 Hemoglobin 12.0 GM/DL Hematocrit 36.4 % Mean Corpuscular Volume 85.1 FL Mean Corpuscular Hemoglobin 28.0 PG Mean Corpuscular Hemoglobin 32.9 % Concent Red Cell Distribution Width 14.1 % Platelet Count 201 TH/MM3 Mean Platelet Volume 9.4 FL Neutrophils (%) (Auto) 56.4 % Lymphocytes (%) (Auto) 26.3 % Monocytes (%) (Auto) 10.3 % Eosinophils (%) (Auto) 5.9 % Basophils (%) (Auto) 1.1 % Neutrophils # (Auto) 2.9 TH/MM3 Lymphocytes # (Auto) 1.4 TH/MM3 Monocytes # (Auto) 0.5 TH/MM3 Eosinophils # (Auto) 0.3 TH/MM3 Basophils # (Auto) 0.1 TH/MM3 CBC Comment DIFF FINAL Differential Comment Prothrombin Time 10.3 SEC Prothromb Time International 0.9 RATIO Ratio Activated Partial 25.3 SEC Thromboplast Time Sodium Level 143 MEQ/L Potassium Level 4.0 MEQ/L Chloride Level 108 MEQ/L Carbon Dioxide Level 25.6 MEQ/L Anion Gap 9 MEQ/L Blood Urea Nitrogen 28 MG/DL Creatinine 1.19 MG/DL Estimat Glomerular Filtration 45 ML/MIN Rate Random Glucose 107 MG/DL Calcium Level 9.1 MG/DL Magnesium Level 2.2 MG/DL Total Bilirubin 0.4 MG/DL Aspartate Amino Transf 9 U/L (AST/SGOT) Alanine Aminotransferase 9 U/L (ALT/SGPT) Alkaline Phosphatase 65 U/L Total Creatine Kinase 77 U/L Troponin I LESS THAN 0.02 NG/ML Total Protein 6.5 GM/DL Albumin 3.3 GM/DL Lipase 95 U/L MDM Medical Decision Making Medical Screen Exam Complete: Yes Emergency Medical Condition: Yes Medical Record Reviewed: Yes Interpretation(s) EKG shows NSR, no ST elevation or depression, and no arrhythmias. No significant T-wave inversions. Laboratory Tests Test 02/03/17 11:00 Monocytes (%) (Auto) 10.3 % (0.0-8.0) Eosinophils (%) (Auto) 5.9 % (0.0-4.0) Chloride Level 108 MEQ/L (98-107) Blood Urea Nitrogen 28 MG/DL (7-18) Creatinine 1.19 MG/DL (0.50-1.00) Estimat Glomerular Filtration 45 ML/MIN (>89) Rate Random Glucose 107 MG/DL (74-106) Aspartate Amino Transf 9 U/L (15-37) (AST/SGOT) Alanine Aminotransferase 9 U/L (10-53) (ALT/SGPT) Troponin I LESS THAN 0.02 NG/ML (0.02-0.05) Albumin 3.3 GM/DL (3.4-5.0) Last 24 hours Impressions Chest X-Ray 02/03/17 1039 Signed Impressions: Service Date/Time: Friday, February 03, 2017 11:02 - CONCLUSION: Mild left base parenchymal opacity Jeremy Solomon MD Differential Diagnosis Gastritis versus gastroesophageal reflux versus ACS Narrative Course EKG did not show any signs of changes. Patient was given Zofran and PPI with some improvement symptoms on reevaluation at 12 PM. Chest x-ray shows a questionable haziness in the left lower lobe other patient is not having any symptoms. At this point, do not think this is related. My plan would be to admit the patient for further evaluation in the chest pain center. Diagnosis Primary Impression: Chest pain Admitting Information Admitting Physician Requests: Admit Sondra Nichole MD Feb 03, 2017 10:47
[2017-02-03 11:27] LABS: AUTOMATED NEUTROPHIL # 2.9 TH/MM3 (1.8-7.7); BASOPHIL # 0.1 TH/MM3 (0-0.2); BASOPHIL % 1.1 % (0.0-2.0); EOSINOPHIL # 0.3 TH/MM3 (0-0.4); EOSINOPHIL % 5.9 % (0.0-4.0); HEMATOCRIT 36.4 % (35.0-46.0); HEMO FLAGS DIFF FINAL; LYMPH % 26.3 % (9.0-44.0); LYMPHOCYTE # 1.4 TH/MM3 (1.0-4.8); MEAN CELL VOLUME 85.1 FL (80.0-100.0); MEAN CORPUSCULAR HGB CONC 32.9 % (32.0-36.0); MONO % 10.3 % (0.0-8.0); NEUT % 56.4 % (16.0-70.0); PLATELET COUNT 201 TH/MM3 (150-450); RED BLOOD COUNT 4.27 MIL/MM3 (4.00-5.30); RED CELL DISTRIBUTION WIDTH 14.1 % (11.6-17.2); WHITE BLOOD COUNT 5.2 TH/MM3 (4.0-11.0)
--- NOTE | 2017-02-03 11:28 | RADRPT ---
EXAM DATE/TIME: 02/03/2017 11:02 [facility] COMPARISON: CHEST SINGLE AP, December 11, 2013, 18:13. INDICATIONS : Chest pain. Heartburn. MEDICAL HISTORY : Congestive heart failure. Hypertension Hernia, umbilical. Renal disease. SURGICAL HISTORY : Tubal ligation. ENCOUNTER: Initial ACUITY: 1 day PAIN SCORE: 3/10 LOCATION: Bilateral middle chest FINDINGS: There is slight opacity at the lateral left lung base. Right lung appears grossly clear. No significa nt effusion suspected. Cardiac contours are satisfactory for technique and projection. CONCLUSION: Mild left base parenchymal opacity Jeremy Solomon MD on February 03, 2017 at 11:25 Board Certified Radiologist. This report was verified electronically.
[2017-02-03] MEDS ORDERED: CARV12.52 PO (11:30)
[2017-02-03] MEDS ORDERED: MINO10TA PO (11:30)
[2017-02-03 11:39] LABS: APTT (PATIENT) 25.3 SEC (24.3-30.1); INTERNATIONAL NORMALIZED RATIO 0.9 RATIO; PROTHROMBIN TIME - PATIENT 10.3 SEC (9.8-11.6)
[2017-02-03 11:45] LABS: ALT (GPT) 9 U/L (10-53); ANION GAP 9 MEQ/L (5-15); AST (GOT) 9 U/L (15-37); BICARBONATE 25.6 MEQ/L (21.0-32.0); BLOOD UREA NITROGEN 28 MG/DL (7-18); CHLORIDE 108 MEQ/L (98-107); GLOMERULAR FILTRATION RATE 45 ML/MIN (>89); MAGNESIUM 2.2 MG/DL (1.5-2.5); SODIUM (NA) 143 MEQ/L (136-145)
[2017-02-03 11:49] LABS: ALKALINE PHOSPHATASE 65 U/L (45-117); TOTAL BILIRUBIN ADULT 0.4 MG/DL (0.2-1.0)
[2017-02-03 11:51] LABS: CREATINE KINASE 77 U/L (26-192)
[2017-02-03] MEDS ORDERED: ACETAMINOPHEN 500 MG CPLT PO PRN (13:15)
[2017-02-03] MEDS ORDERED: ONDANSETRON HCL 4 MG/2 ML VIAL IV PRN (13:15)
[2017-02-03] MEDS ORDERED: SODIUM CHLORIDE 0.9% FLUSH 5 ML FLUSH IVF PRN (13:15)
[2017-02-03] MEDS ORDERED: ACETAMINOPHEN/HYDROcodone 325 MG/7.5 MG TAB PO PRN (13:15)
--- NOTE | 2017-02-03 13:35 | HHI.HP ---
[facility] Primary Care Physician Heraclio Christian MD Chief Complaint Chest pain History of Present Illness This is a 71-year-old female that presents to ED via private vehicle with a complaint of chest discomfort. She states that she has had 4 days of constant burning in the center of her chest that is worsened when she lies back. She states she's having a hard time going to sleep because the discomfort will worsen. She was nauseous when the intensity goes higher and had 4-5 episodes of emesis during that. She has tried Tums which we'll give some relief for short period time. Sometimes food and liquids have worsen the discomfort. She denies prior GERD issues. States she was given some medication the ER and now the symptoms have resolved. Upon reviewing records she was given IV Pepcid and Zofran. Review of Systems General: Patient denies fevers, chills recent, and recent travel HEENT: Patient denies headache, sore throat, difficulty swallowing. Cardiovascular: Has the chest discomfort as mentioned above. Denies sensation of heart beating rapidly or irregularly. No syncope. Denies diaphoresis. Respiratory: Denies shortness of breath or inspirational chest discomfort. Denies coughing wheezing or hemoptysis. GI: Complains of nausea and had 5 episodes of emesis. Was nonbloody. Patient denies diarrhea, abdominal pain, bloody stools. Musculoskeletal: Patient denies joint pain or edema. Denies calf pain or edema. Neurovascular: Patient denies numbness, tingling, weakness in extremities. Denies headache. Endocrine: Denies polyuria and polydipsia. Hematologic: Denies easy bruising. Skin: Denies rash or itching. Past Family Social History Allergies: Coded Allergies: No Known Allergies (Unverified , 02/03/17) Past Medical History Attention, chronic renal insufficiency, hypertension, tobacco abuse. Patient states that she has cancer on one of her kidneys and is scheduled to have surgery in February. Denies diabetes, hyperlipidemia, and known CAD. Past Surgical History Tubal ligation and tonsillectomy. Reported Medications Reported Meds & Active Scripts Active Reported Minoxidil 10 Mg Tab 5 Mg PO BID Carvedilol 12.5 Mg Tab 12.5 Mg PO BID Amlodipine (Amlodipine Besylate) 5 Mg Tab 5 Mg PO DAILY Enalapril (Enalapril Maleate) 20 Mg Tab 20 Mg PO BID Aspirin DR (Aspirin) 81 Mg Tabdr 81 Mg PO DAILY Active Ordered Medications Current Medications Medications (Trade) Dose Ordered Sig/Karthik Route Start Time Stop Time Status Last Admin (NS Flush) 2 ml UNSCH PRN IVF 02/03/17 10:45 02/03/17 11:11 (NS Flush) 2 ml UNSCH PRN IV FLUSH 02/03/17 10:45 02/03/17 11:11 (NS Flush) 2 ml UNSCH PRN IVF 02/03/17 13:15 UNV (NS Flush) 2 ml BID IVF 02/03/17 21:00 UNV (Tylenol) 500 mg Q4H PRN PO 02/03/17 13:15 UNV ([place] 7.5-325 Mg) 1 tab Q4H PRN PO 02/03/17 13:15 UNV (Zofran Inj) 4 mg Q6H PRN IV 02/03/17 13:15 UNV (Protonix) 40 mg DAILY PO 02/04/17 09:00 UNV (Norvasc) 5 mg DAILY PO 02/04/17 09:00 UNV (Coreg) 12.5 mg BID PO 02/03/17 21:00 UNV (Vasotec) 20 mg BID PO 02/03/17 21:00 UNV (Loniten) 5 mg BID PO 02/03/17 21:00 UNV Family History Denies family history of CAD. Social History Patient smokes one pack of cigarettes daily for 50 years. She denies alcohol or illicit drugs. Physical Exam Vital Signs Vital Signs Date Time Temp Pulse Resp B/P Pulse Ox O2 Delivery O2 Flow Rate FiO2 02/03/17 13:00 80 23 111/68 97 Room Air 02/03/17 12:00 84 22 108/58 95 Room Air 02/03/17 10:57 76 19 141/60 95 Room Air 125/60 02/03/17 10:50 96 Room Air 02/03/17 10:50 96 Nasal Cannula 2.0 02/03/17 10:50 82 96 Room Air 02/03/17 10:28 98.9 89 18 166/79 96 Room Air Physical Exam GENERAL: This is a well-nourished, well-developed patient, in no apparent distress. Patient speaks in clear complete sentences. Patient is pleasant. HEENT: Head is atraumatic and normocephalic. Neck is supple without lymphadenopathy and trachea is midline. No JVD or carotid bruits. CARDIOVASCULAR: Regular rate and rhythm without murmurs, gallops, or rubs. RESPIRATORY: Clear to auscultation. Breath sounds equal bilaterally. No wheezes , rales, or rhonchi. Chest wall is nontender. No use of accessory muscles. GASTROINTESTINAL: Abdomen is nontender during my examination but she states that prior to getting the medication in the ER she was quite tender. She states that it hurt when the ER physician was palpating her abdomen. Abdomen is nontender, nondistended. Abdomen soft. No obvious pulsatile mass or bruit. No CVA tenderness. Strong femoral pulses bilaterally. Normal bowel sounds in all quadrants. MUSCULOSKELETAL: Patient is moving upper and lower extremities freely. No calf tenderness or edema, no Homans sign. Strong pulses in upper and lower extremities. NEUROLOGICAL: Patient is alert and oriented. Cranial nerves 2-12 are grossly intact. No focal deficits and speech is clear. SKIN: No rash and turgor is normal. Laboratory Laboratory Tests Test 02/03/17 11:00 White Blood Count 5.2 Red Blood Count 4.27 Hemoglobin 12.0 Hematocrit 36.4 Mean Corpuscular Volume 85.1 Mean Corpuscular Hemoglobin 28.0 Mean Corpuscular Hemoglobin 32.9 Concent Red Cell Distribution Width 14.1 Platelet Count 201 Mean Platelet Volume 9.4 Neutrophils (%) (Auto) 56.4 Lymphocytes (%) (Auto) 26.3 Monocytes (%) (Auto) 10.3 Eosinophils (%) (Auto) 5.9 Basophils (%) (Auto) 1.1 Neutrophils # (Auto) 2.9 Lymphocytes # (Auto) 1.4 Monocytes # (Auto) 0.5 Eosinophils # (Auto) 0.3 Basophils # (Auto) 0.1 CBC Comment DIFF FINAL Differential Comment Prothrombin Time 10.3 Prothromb Time International 0.9 Ratio Activated Partial 25.3 Thromboplast Time Sodium Level 143 Potassium Level 4.0 Chloride Level 108 Carbon Dioxide Level 25.6 Anion Gap 9 Blood Urea Nitrogen 28 Creatinine 1.19 Estimat Glomerular Filtration 45 Rate Random Glucose 107 Calcium Level 9.1 Magnesium Level 2.2 Total Bilirubin 0.4 Aspartate Amino Transf 9 (AST/SGOT) Alanine Aminotransferase 9 (ALT/SGPT) Alkaline Phosphatase 65 Total Creatine Kinase 77 Troponin I LESS THAN 0.02 Total Protein 6.5 Albumin 3.3 Lipase 95 Result Diagram: 02/03/17 1100 02/03/17 1100 Imaging Last 48 hours Impressions Chest X-Ray 02/03/17 1039 Signed Impressions: Service Date/Time: Friday, February 03, 2017 11:02 - CONCLUSION: Mild left base parenchymal opacity Jeremy Solomon MD Course Initial EKG is sinus rhythm without significant ST segment depressions or elevations. Assessment and Plan Assessment and Plan * Atypical chest pain: Patient's discomfort appears to be GI related. We will start Protonix. Patient will have serial cardiac enzymes and EKGs for ruling out purposes. She will be seen by Dr. Horton of cardiology in the chest pain center and after that evaluation further plan will be decided. At discharge patient will need to be followed up by her primary care physician. * Hypertension: Continue current medication. * Tobacco abuse: Patient has been counseled on importance of smoking cessation. Patient is stable at this time. She is agreeable to this plan. Yaw Vivas Feb 03, 2017 13:35
[2017-02-03 15:04] LABS: CREATINE KINASE 77 U/L (26-192)
--- NOTE | 2017-02-03 15:14 | PD.CARD.PN ---
Subjective Subjective Remarks CARDIOLOGY ATTENDING NOTE HPI: 71 yo lady with hx of probable renal cell carcinoma, hernia and diverticulitis began about a week ago with burning upper abdominal pain radiating up into chest that led to N&V. Since that time she has been having recurrent episodes each night that led her friend to bring her to the ED. No hx of cardiac problems but is very obese, HTN and a smoker. O: GEN Obese, odor of tobacco but alert and cooperative HEENT NCAT, ASAEL, EOMI Mouth upper plate but no lesions NECK no JVD, M, N, BRUITS CHEST decreased BS but no RWR ABD no M, G, R EXT no CCE EKG NEG CXR Mild abnormality seen at base LAB CRF but otherwise neg for ACS A: Atypical CP Possible renal Ca CP probably of GI origin P: RO per protocol and if neg will JESSICA SCAN Needs FU with both GI and surgery (Dr. Hernandez) Objective Vital Signs / I&O Vital Signs Date Time Temp Pulse Resp B/P Pulse Ox O2 Delivery O2 Flow Rate FiO2 02/03/17 13:33 98.0 80 18 122/70 95 02/03/17 13:00 80 23 111/68 97 Room Air 02/03/17 12:00 84 22 108/58 95 Room Air 02/03/17 10:57 76 19 141/60 95 Room Air 125/60 02/03/17 10:50 96 Room Air 02/03/17 10:50 96 Nasal Cannula 2.0 02/03/17 10:50 82 96 Room Air 02/03/17 10:28 98.9 89 18 166/79 96 Room Air Laboratory Laboratory Tests Test 02/03/17 11:00 White Blood Count 5.2 TH/MM3 Red Blood Count 4.27 MIL/MM3 Hemoglobin 12.0 GM/DL Hematocrit 36.4 % Mean Corpuscular Volume 85.1 FL Mean Corpuscular Hemoglobin 28.0 PG Mean Corpuscular Hemoglobin 32.9 % Concent Red Cell Distribution Width 14.1 % Platelet Count 201 TH/MM3 Mean Platelet Volume 9.4 FL Neutrophils (%) (Auto) 56.4 % Lymphocytes (%) (Auto) 26.3 % Monocytes (%) (Auto) 10.3 % Eosinophils (%) (Auto) 5.9 % Basophils (%) (Auto) 1.1 % Neutrophils # (Auto) 2.9 TH/MM3 Lymphocytes # (Auto) 1.4 TH/MM3 Monocytes # (Auto) 0.5 TH/MM3 Eosinophils # (Auto) 0.3 TH/MM3 Basophils # (Auto) 0.1 TH/MM3 CBC Comment DIFF FINAL Differential Comment Prothrombin Time 10.3 SEC Prothromb Time International 0.9 RATIO Ratio Activated Partial 25.3 SEC Thromboplast Time Sodium Level 143 MEQ/L Potassium Level 4.0 MEQ/L Chloride Level 108 MEQ/L Carbon Dioxide Level 25.6 MEQ/L Anion Gap 9 MEQ/L Blood Urea Nitrogen 28 MG/DL Creatinine 1.19 MG/DL Estimat Glomerular Filtration 45 ML/MIN Rate Random Glucose 107 MG/DL Calcium Level 9.1 MG/DL Magnesium Level 2.2 MG/DL Total Bilirubin 0.4 MG/DL Aspartate Amino Transf 9 U/L (AST/SGOT) Alanine Aminotransferase 9 U/L (ALT/SGPT) Alkaline Phosphatase 65 U/L Total Creatine Kinase 77 U/L Troponin I LESS THAN 0.02 NG/ML Total Protein 6.5 GM/DL Albumin 3.3 GM/DL Lipase 95 U/L Heraclio Hroton MD Feb 03, 2017 15:14
[2017-02-03] MEDS ORDERED: PROT40TA PO (16:44)
[2017-02-03] MEDS ORDERED: RESP: ALBUTEROL 2.5 MG/IPRATROPIUM 0.5 MG NEB (PRN) INH (16:45)
[2017-02-03 17:47] LABS: CREATINE KINASE 81 U/L (26-192)
[2017-02-03] MEDS ORDERED: SODIUM CHLORIDE 0.9% FLUSH 5 ML FLUSH IVF SCH (21:00)
[2017-02-03] MEDS: ENALAPRIL MALEATE 10 MG TAB PO SCH (21:00)
[2017-02-03] MEDS: CARVEDILOL 12.5 MG TAB PO SCH (21:00)
[2017-02-03] MEDS: MINOXIDIL 10 MG TAB PO SCH (21:00)
[2017-02-04] VITALS: PULSE 65
[2017-02-04 03:55] VITALS: BP 176/77; PULSE 82; RESP 16; TEMP 98.5; O2SAT 92; O2SAT 98
[2017-02-04 04:08] VITALS: BP 132/84
[2017-02-04 04:33] VITALS: PULSE 80
[2017-02-04 08:15] VITALS: BP 130/75; PULSE 81; RESP 18; TEMP 98; O2SAT 94
[2017-02-04 08:22] VITALS: PULSE 65
[2017-02-04] MEDS: MINOXIDIL 10 MG TAB PO SCH (08:22)
[2017-02-04] MEDS: CARVEDILOL 12.5 MG TAB PO SCH (08:22)
[2017-02-04] MEDS: ENALAPRIL MALEATE 10 MG TAB PO SCH (08:22)
[2017-02-04] MEDS ORDERED: amLODIPine BESYLATE 5 MG TAB PO SCH (09:00)
[2017-02-04] MEDS ORDERED: PANTOPRAZOLE SOD 40 MG DELAYED RELEASE TAB PO SCH (09:00)
[2017-02-04] MEDS ORDERED: REGADENOSON INJ 0.4 MG/5 ML SYR ONE (09:36)
--- NOTE | 2017-02-04 11:31 | RADRPT ---
EXAM DATE/TIME: 02/04/2017 08:52 [facility] COMPARISON: No previous studies available for comparison. INDICATIONS : Mid chest pain for four days. Angina. DOSE: 35.0 mCi Tc99m Myoview at stress. 10.9 mCi Tc99m Myoview at rest. 0.4 mg Lexiscan STRESS SYMPTOMS: Chest pressure. EJECTION FRACTION: 70% MEDICAL HISTORY : Renal cell carcinoma. Hypertension. SURGICAL HISTORY : Tubal ligation. Tonsillectomy. ENCOUNTER: Initial ACUITY: 4 - 6 days PAIN SCALE: 5/10 LOCATION: Midsternal chest TECHNIQUE: The patient underwent pharmacologic stress with infusion of prescribed dose. Continuous ECG tracing was monitored during stress. Gated SPECT imaging was performed after stress and conventional SPECT i maging was performed at rest. The examination was performed on a SPECT/CT scanner, both attenuation and non-corrected datasets were reviewed. FINDINGS: DISTRIBUTION: The maximum perfused segment at stress is in the anterolateral wall. PERFUSION STUDY: The pattern of perfusion at stress is within normal limits. GATED STUDY: There is intact wall motion and thickening without hypokinetic or dyskinetic segments. CONCLUSION: No appreciable ischemia. RISK CATEGORY: Low (<1% Annual Mortality Rate) Danial Mar MD on February 04, 2017 at 11:29 Board Certified Radiologist. This report was verified electronically.
--- NOTE | 2017-02-04 11:58 | HHI.DCPOC ---
Discharge Care Plan Diagnosis: (1) Atypical chest pain (2) GERD (gastroesophageal reflux disease) (3) Tobacco abuse Goals to Promote Your Health * To prevent worsening of your condition and complications * To maintain your health at the optimal level Directions to Meet Your Goals Take your medications as prescribed Follow your dietary instruction Follow activity as directed Keep your appointments as scheduled Take your immunizations and boosters as scheduled If your symptoms worsen call your PCP, if no PCP go to Urgent Care Center or Emergency Room Smoking is Dangerous to Your Health. Avoid second hand smoke Call the 24-hour hour crisis hotline for domestic abuse at Bree RendonP Feb 04, 2017 11:58
--- NOTE | 2017-02-05 13:25 | EKG ---
Date Performed: 02/03/2017 Time Performed: 17:32:56 PTAGE: 71 years EKG: Sinus rhythm LOW QRS VOLTAGE IN PRECORDIAL LEADS NONSPECIFIC T-WAVE ABNORMALITY BORDERLINE ECG PREVIOUS TRACING : 02/03/2017 15.03 Since previous tracing, no significant change noted DOCTOR: Stefano Srivastava Interpretating Date/Time 02/05/2017 13:21:44
--- NOTE | 2017-02-05 13:25 | EKG ---
Date Performed: 02/03/2017 Time Performed: 10:45:08 PTAGE: 71 years EKG: Sinus rhythm NONSPECIFIC T-WAVE ABNORMALITY BORDERLINE ECG PREVIOUS TRACING : 01/01/2015 07.03 Since previous tracing, no significant change noted DOCTOR: Stefano Srivastava Interpretating Date/Time 02/05/2017 13:23:04
--- NOTE | 2017-02-05 13:25 | EKG ---
Date Performed: 02/03/2017 Time Performed: 15:03:37 PTAGE: 71 years EKG: Sinus rhythm NONSPECIFIC T-WAVE ABNORMALITY BORDERLINE ECG PREVIOUS TRACING : 02/03/2017 10.45 Since previous tracing, no significant change noted DOCTOR: Stefano Sirvastava Interpretating Date/Time 02/05/2017 13:22:08
--- NOTE | 2017-02-05 13:30 | TR ---
Date Performed: 02/04/2017 Time Performed: 09:41:17 DOCTOR: Stefano Srivastava DRUG LIST: CLINICAL HISTORY: REASON FOR TEST: REASON FOR ENDING: OBSERVATION: CONCLUSION: Lexiscan stress test was performed under standard four minute protocol. Radionuclid e was injected one minute prior to ending the test. No electrocardiographic abormalities were present to suggest ischemia. Nuclear imaging and interpretation are pending. COMMENTS:
== END 2017-02-04 13:11 | disposition home or self-care (01) ==
LOC: NEPC 10:26 → NEDA 12:06 → NEPGCP 13:21
PROVIDERS: ADMIT Internal Medicine Interventional Cardiology; ATTEND Internal Medicine Interventional Cardiology
DX: R07.89 Other chest pain (principal); J21.9 Acute bronchiolitis, unspecified; F17.200 Nicotine dependence, unspecified, uncomplicated; R94.31 Abnormal electrocardiogram [ECG] [EKG]; I13.0 Hypertensive heart and chronic kidney disease with heart failure and stage 1 through stage 4 chronic kidney disease, or unspecified chronic kidney disease; I50.9 Heart failure, unspecified; E11.22 Type 2 diabetes mellitus with diabetic chronic kidney disease; N18.9 Chronic kidney disease, unspecified; Z79.82 Long term (current) use of aspirin; Z79.899 Other long term (current) drug therapy; Z71.6 Tobacco abuse counseling
CPT/HCPCS: 71010; 78452; 80053; 82550; 83690; 83735; 84484; 85025; 85610; 85730; 93005; 93017; 96374; 96375; 99285; A9502; G0378; J2405; J2785

== ENCOUNTER 2017-03-04 05:18 | Observation (INO) | payer MEDICARE, OTHER ==
[~2017-03-04] VITALS: Ht 154.9 cm; Wt 112.6 kg
[~2017-03-04 05:18] MED LIST changes: +AMLO10TA2 PO; -AMLO5TAB2 PO; +CARV12.52 PO; -CARV6.252 PO; -CIPR-9 PO; -HYDR-3516 PO; -METR-1 PO; +PROT40TA PO
[2017-03-04] MEDS ORDERED: LACTATED RINGER'S 1000 ML IV PRN (05:45)
[2017-03-04] MEDS ORDERED: CHLORHEXIDINE GLUCONATE 2 % 1 PACK (2 CLOTHS) TOPICAL PRN (05:45)
[2017-03-04] MEDS ORDERED: SODIUM CHLORID 0.9% 500 ML IV PRN (05:45)
[2017-03-04] MEDS ORDERED: INSULIN HUMAN REGULAR 1,000 UNITS/10 ML VIAL SQ PRN (05:45)
[2017-03-04] MEDS ORDERED: METOPROLOL TARTRATE 25 MG TAB PO PRN (05:45)
[2017-03-04] MEDS ORDERED: ceFAZolin 2 GM PREMIX 50 ML IV SCH (05:45)
[2017-03-04] MEDS ORDERED: POVIDONE IODINE 5% (ANTISEPSIS KIT) 4 APPLICATIONS EACH NARE PRN (05:45)
[2017-03-04 06:05] VITALS: BP 168/81; PULSE 80; RESP 18; TEMP 98.6; O2SAT 97
[2017-03-04 06:20] LABS: INTERNATIONAL NORMALIZED RATIO 0.9 RATIO; PROTHROMBIN TIME - PATIENT 10.4 SEC (9.8-11.6)
[2017-03-04] MEDS ORDERED: DEXAMETHASONE SOD PHOS 4 MG/ML VIAL ONE (06:50)
[2017-03-04] MEDS ORDERED: MIDAZOLAM HCL 2 MG/2 ML VIAL ONE ×2 (06:50→11:39)
[2017-03-04] MEDS ORDERED: FAMOTIDINE 20 MG/2 ML VIAL ONE (06:50)
[2017-03-04] MEDS ORDERED: MANNITOL 12.5 GM/50 ML VIAL IV ONE ×2 (08:45→10:00)
[2017-03-04] MEDS ORDERED: SUGAMMADEX SODIUM 200 MG/2 ML VIAL IV PUSH ONE ×2 (10:51)
--- NOTE | 2017-03-04 11:12 | PD.OP ---
Operative Report Date of Surgery: Mar 04, 2017 Preoperative Diagnosis: Suspicious Right Renal Mass Postoperative Diagnosis: Procedure: Right Robotic Partial Nephrectomy with intraoperative ultrasound. Surgeon: Renard Bradley Gui Developer(s): n/a Operation and Findings: clamp time: 13 minutes EBL: 150 ml See dictated report for full details. Renard Bradley MD Mar 04, 2017 11:12
[2017-03-04] MEDS ORDERED: DO NOT ADM ANY ANTICOAGULANT DRUGS PRN (11:29)
[2017-03-04] MEDS ORDERED: fentaNYL CITRATE 250 MCG/5 ML AMP ONE (11:38)
[2017-03-04] MEDS: SODIUM CHLOR 0.9% 1000 ML INJ 1,000 ML IV SCH ×2 (11:50→20:25)
[2017-03-04] MEDS ORDERED: SODIUM CHLORID 0.9% 500 ML INJ 1,000 ML IV ONE (12:00)
[2017-03-04] MEDS ORDERED: ePHEDrine/NS 25 MG/5 ML SYR IV ONE (12:00)
[2017-03-04] MEDS ORDERED: ACETAMINOPHEN 1000 MG/100 ML VIAL IV ONE (12:00)
[2017-03-04] MEDS ORDERED: PROPOFOL 200 MG/20 ML AMP IV ONE (12:00)
[2017-03-04] MEDS ORDERED: NORMOSOL R INJ 2,000 ML IV ONE (12:00)
[2017-03-04] MEDS ORDERED: ONDANSETRON HCL 4 MG/2 ML VIAL IV PUSH ONE (12:00)
[2017-03-04] MEDS ORDERED: PHENYLEPH/NS 1000 MCG/10 ML SYR IV ONE (12:00)
--- NOTE | 2017-03-04 12:26 | RADRPT ---
EXAM DATE/TIME: 03/04/2017 11:41 [facility] COMPARISON: CHEST SINGLE AP, February 03, 2017, 11:02. INDICATIONS : Central line placement done or. MEDICAL HISTORY : Congestive heart failure. Hypertension. Hernia, umbilical.Renal disease. SURGICAL HISTORY : Tubal ligation. ENCOUNTER: Initial ACUITY: 1 day PAIN SCORE: Non-responsive. LOCATION: Bilateral chest FINDINGS: A single view of the chest demonstrates interval placement of a left subclavian central venous cathet er. Its tip is in the distal left brachiocephalic vein. Lungs remain well expanded and clear. There is no evidence of pneumothorax. Heart is mildly enlarged. CONCLUSION: Interval placement of a left subclavian central venous catheter with position indicated above. No evidence of pneumothorax. Girish Vences MD on March 04, 2017 at 12:23 Board Certified Radiologist. This report was verified electronically.
[2017-03-04 12:49] LABS: BASOPHIL # 0.1 TH/MM3 (0-0.2); BASOPHIL % 0.6 % (0.0-2.0); EOSINOPHIL # 0.1 TH/MM3 (0-0.4); EOSINOPHIL % 0.7 % (0.0-4.0); HEMATOCRIT 39.3 % (35.0-46.0); HEMO FLAGS DIFF FINAL; LYMPH % 4.9 % (9.0-44.0); LYMPHOCYTE # 0.7 TH/MM3 (1.0-4.8); MEAN CELL VOLUME 84.5 FL (80.0-100.0); MEAN CORPUSCULAR HEMOGLOBIN 28.2 PG (27.0-34.0); MEAN CORPUSCULAR HGB CONC 33.4 % (32.0-36.0); NEUT % 91.8 % (16.0-70.0); PLATELET COUNT 225 TH/MM3 (150-450); RED BLOOD COUNT 4.65 MIL/MM3 (4.00-5.30); RED CELL DISTRIBUTION WIDTH 13.6 % (11.6-17.2); WHITE BLOOD COUNT 14.2 TH/MM3 (4.0-11.0)
[2017-03-04] MEDS ORDERED: MORPHINE SULFATE 4 MG/ML INJ IV PUSH PRN (13:00)
[2017-03-04] MEDS ORDERED: ONDANSETRON HCL 4 MG/2 ML VIAL IV PUSH PRN (13:00)
[2017-03-04 13:19] LABS: BICARBONATE 22.9 MEQ/L (21.0-32.0); POTASSIUM 3.8 MEQ/L (3.5-5.1)
[2017-03-04] MEDS: PANTOPRAZOLE SODIUM 40 MG VIAL IV PUSH SCH (13:20)
[2017-03-04] MEDS: ACETAMINOPHEN 1000 MG/100 ML VIAL IV SCH ×3 (13:22→20:27)
[2017-03-04] MEDS ORDERED: LABETALOL HCL 100 MG/20 ML VIAL IV PUSH PRN (14:45)
[2017-03-04] MEDS ORDERED: DEXTROSE 50% IN WATER 50 ML VIAL(D50) IV PRN (15:00)
[2017-03-04] MEDS ORDERED: GLUCAGON 1 MG/ML VIAL OTHER PRN (15:00)
--- NOTE | 2017-03-04 15:21 | PD.CONS ---
[facility] Service Critical Care Medicine Consult Requested By Urology Service Reason for Consult Critical Care management Primary Care Physician Heraclio Christian MD History of Present Illness 71 y/o woman underwent robotic resection of a right renal mass suspicious for renal cell carcinoma. Hx significant for 40 pk/yr smoking, current as well. I met her immediately postop where the only issue is hypertension. Review of Systems ROS No chest pain or SOB. Mild abdominal discomfort. Past Family Social History Allergies: Coded Allergies: No Known Allergies (Unverified , 03/04/17) Reported Medications Amlodipine 5 mg po bid ASA 81 mg daily Carvedilol 12.5 mg bid Enalapril 20 mg bid Protonix 40 mg daily Physical Exam Vital Signs Vital Signs Date Time Temp Pulse Resp B/P Pulse Ox O2 Delivery O2 Flow Rate FiO2 03/04/17 14:00 85 16 145/77 100 Nasal Cannula 3 163/73 03/04/17 13:30 82 16 145/77 100 Nasal Cannula 3 163/73 03/04/17 13:00 84 16 156/79 100 Nasal Cannula 3 156/79 03/04/17 12:30 83 14 151/76 100 Nasal Cannula 3 162/77 03/04/17 12:15 81 14 145/71 99 Nasal Cannula 3 165/77 03/04/17 12:00 75 14 158/84 100 Nasal Cannula 3 175/82 03/04/17 11:45 71 15 165/84 99 Nasal Cannula 3 170/85 03/04/17 11:30 73 14 160/80 99 Simple Mask 6 03/04/17 11:25 97.4 74 14 143/77 99 Simple Mask 8 03/04/17 06:05 98.6 80 18 168/81 97 Physical Exam Wt 239 lbs Gen: Comfortable. Head: Normal. Neck: Supple, airway widely patent. Lungs; Clear, no wheezes or crackles, comfortable. Heart: NL S1S2, no m,r, no JVD. Abdomen: Post-surgical, nondistended, quiet, voluntary guarding only. Extremities: Warm, well perfused. No edema or cyanosis Neuro: Sleepy, controls airway well, Moves 4 limbs to command. Laboratory Laboratory Tests Test 03/04/17 03/04/17 06:00 12:35 Prothrombin Time 10.4 Prothromb Time International 0.9 Ratio Blood Type O POSITIVE Antibody Screen NEGATIVE Crossmatch Leukocyte-Reduced Red Blood Cells Blood Bank Comment White Blood Count 14.2 Red Blood Count 4.65 Hemoglobin 13.1 Hematocrit 39.3 Mean Corpuscular Volume 84.5 Mean Corpuscular Hemoglobin 28.2 Mean Corpuscular Hemoglobin 33.4 Concent Red Cell Distribution Width 13.6 Platelet Count 225 Mean Platelet Volume 8.3 Neutrophils (%) (Auto) 91.8 Lymphocytes (%) (Auto) 4.9 Monocytes (%) (Auto) 2.0 Eosinophils (%) (Auto) 0.7 Basophils (%) (Auto) 0.6 Neutrophils # (Auto) 13.0 Lymphocytes # (Auto) 0.7 Monocytes # (Auto) 0.3 Eosinophils # (Auto) 0.1 Basophils # (Auto) 0.1 CBC Comment DIFF FINAL Differential Comment Sodium Level 138 Potassium Level 3.8 Chloride Level 105 Carbon Dioxide Level 22.9 Anion Gap 10 Blood Urea Nitrogen 8 Creatinine 1.10 Estimat Glomerular Filtration 49 Rate Random Glucose 170 Calcium Level 8.4 Result Diagram: 03/04/17 1235 03/04/17 1235 Assessment and Plan Assessment and Plan Assessment: 1. S/P robotic partial right nephrectomy. 2. Hypertension. 3. Active smoking history. 4. Hyperglycemia. Plan: 1. IS q2h. 2. HOB up 30 degrees. 3. SCDs. 4. Protonix. 5. Continue beta latanya. 6. Supplement with labetalol prn. 7. Continue norvasc. 8. Follow I&O closely. 9. Loose SSI coverage. Overall impression: Warm and well perfused after partial nephrectomy. Stable respiratory and hemodynamic function. Jose Montiel MD Mar 04, 2017 15:21
[2017-03-04 16:00] VITALS: BP 168/82; PULSE 78; PULSE 98; RESP 20; TEMP 97.5; O2SAT 99
[2017-03-04] MEDS ORDERED: METOPROLOL TARTRATE 25 MG TAB PO ONE (16:00)
[2017-03-04] MEDS ORDERED: hydrALAZINE HCL 20 MG/ML VIAL IV PUSH PRN (16:00)
[2017-03-04] MEDS: INSULIN ASPART SUPPLEMENTAL SCALE SQ SCH ×2 (16:00→21:00)
[2017-03-04] MEDS: METOPROLOL TARTRATE 5 MG/5 ML VIAL IV PUSH SCH ×2 (16:22→21:53)
[2017-03-04 18:00] VITALS: PULSE 98
[2017-03-04 19:00] VITALS: BP 159/77; PULSE 90; RESP 16; TEMP 98.3; O2SAT 98
[2017-03-04 20:00] VITALS: PULSE 90
[2017-03-04] MEDS: DOCUSATE SODIUM 100 MG CAP PO SCH (20:26)
[2017-03-04 22:00] VITALS: PULSE 80
[2017-03-05] VITALS (11 sets, daily range): BP systolic 135–171; BP diastolic 65–78; PULSE 64–90; RESP 12–18; TEMP 98.2–98.6; O2SAT 96–99
[2017-03-05] MEDS: ACETAMINOPHEN 1000 MG/100 ML VIAL IV SCH ×4 (03:35→20:21)
[2017-03-05] MEDS: METOPROLOL TARTRATE 5 MG/5 ML VIAL IV PUSH SCH (03:35)
[2017-03-05 05:22] LABS: HEMATOCRIT 35.1 % (35.0-46.0); MEAN CELL VOLUME 84.9 FL (80.0-100.0); MEAN CORPUSCULAR HEMOGLOBIN 28.8 PG (27.0-34.0); MEAN CORPUSCULAR HGB CONC 33.9 % (32.0-36.0); PLATELET COUNT 214 TH/MM3 (150-450); RED BLOOD COUNT 4.14 MIL/MM3 (4.00-5.30); RED CELL DISTRIBUTION WIDTH 13.9 % (11.6-17.2); REVIEW FLAG FINAL; WHITE BLOOD COUNT 12.6 TH/MM3 (4.0-11.0)
[2017-03-05 05:50] LABS: BICARBONATE 26.1 MEQ/L (21.0-32.0)
[2017-03-05] MEDS: SODIUM CHLOR 0.9% 1000 ML INJ 1,000 ML IV SCH ×4 (05:50→20:21)
[2017-03-05] MEDS: INSULIN ASPART SUPPLEMENTAL SCALE SQ SCH ×4 (06:16→20:45)
[2017-03-05] MEDS: CARVEDILOL 12.5 MG TAB PO SCH ×2 (08:19→20:21)
[2017-03-05] MEDS: ENALAPRIL MALEATE 10 MG TAB PO SCH ×2 (08:19→20:22)
[2017-03-05] MEDS: DOCUSATE SODIUM 100 MG CAP PO SCH ×2 (08:19→20:21)
--- NOTE | 2017-03-05 13:26 | HHI.PR ---
Subjective Patient symptoms today doing great. Denies pain. Had BM. Has appetite. Denies CP/SOB/F/C. up to chair. Objective Vital Signs Vital Signs Date Time Temp Pulse Resp B/P Pulse Ox O2 Delivery O2 Flow Rate FiO2 03/05/17 12:00 98.6 64 18 135/65 98 03/05/17 12:00 79 03/05/17 10:00 79 03/05/17 08:00 98.5 79 12 150/72 99 03/05/17 08:00 79 03/05/17 07:00 99 Nasal Cannula 2.00 03/05/17 06:00 66 03/05/17 04:00 68 17 152/71 98 03/05/17 04:00 68 03/05/17 00:00 76 03/05/17 00:00 76 16 144/70 98 03/04/17 22:00 80 03/04/17 20:00 90 03/04/17 19:00 98 Room Air 03/04/17 19:00 98.3 90 16 159/77 98 Arterial Line 03/04/17 18:00 98 03/04/17 16:00 97.5 78 20 99 168/82 03/04/17 16:00 98 03/04/17 14:00 85 16 145/77 100 Nasal Cannula 3 163/73 03/04/17 13:30 82 16 145/77 100 Nasal Cannula 3 163/73 Intake & Output 03/05/17 03/05/17 07:00 19:00 Intake Total 2375 ml Output Total 1775 ml Balance 600 ml Intake Oral 50 ml IV Total 2325 ml Output Urine Total 1725 ml Drainage Total 50 ml # Bowel Movements 0 Result Diagram: 03/05/17 0509 03/05/17 0509 Objective Remarks NAD. A/O x 3 RRR CTAB soft, obese, NT. Inc c/d/i Belle clear yellow Ext NT. Medications and IVs Current Medications Medications (Trade) Dose Ordered Sig/Karthik Route Start Time Stop Time Status Last Admin Sodium Chloride 500 ml @ 30 mls/hr [id number] PRN IV 03/04/17 05:45 03/07/17 05:44 (NS 1000 ml Inj) 1,000 ml @ 125 mls/hr Q8H IV 03/04/17 13:00 03/05/17 05:50 (Morphine Inj) 4 mg Q3H PRN IV PUSH 03/04/17 13:00 (Ofirmev Inj) 1,000 mg Q6H IV 03/04/17 14:00 03/05/17 08:20 Oxycodone HCl 10 mg 10 mg Q4H PRN PO 03/04/17 13:00 (Ancef Inj/NS Inj) 100 ml @ 200 mls/hr Q8H IV 03/04/17 16:00 03/05/17 08:21 (Colace) 100 mg BID PO 03/04/17 21:00 03/05/17 08:19 (Protonix Inj) 40 mg Q24H IV PUSH 03/04/17 13:00 03/04/17 13:20 (Zofran Inj) 4 mg Q6HR PRN IV PUSH 03/04/17 13:00 (Norvasc) 20 mg BID PO 03/05/17 09:00 03/05/17 08:19 (Coreg) 12.5 mg BID PO 03/05/17 09:00 03/05/17 08:19 (Vasotec) 20 mg BID PO 03/05/17 09:00 03/05/17 08:19 (Trandate Inj) 20 mg Q3H PRN IV PUSH 03/04/17 14:45 03/04/17 16:12 (D50w (Vial) Inj) 50 ml UNSCH PRN IV 03/04/17 15:00 (Glucagon Inj) 1 mg UNSCH PRN OTHER 03/04/17 15:00 (Apresoline Inj) 10 mg Q1H PRN IV PUSH 03/04/17 16:00 Assessment and Plan Assessment and Plan POD # 1 s/p Right Robotic Partial Nephrectomy -doing well. Good UOP -Hgb stable. Good renal function. -d/c belle -Advance diet. -GI/DVT prophylaxis -PT/OT -Transfer to floor. Consult Hospitalist for medical management. -Likely d/c tomorrow Renard Bradley MD Mar 05, 2017 13:26
--- NOTE | 2017-03-05 14:06 | HHI.CCPN ---
Subjective Remarks/Hospital Course 71 y/o woman underwent robotic resection of a right renal mass suspicious for renal cell carcinoma. Hx significant for 40 pk/yr smoking, current as well. I met her immediately postop where the only issue is hypertension. 03/05: Warm, well perfused. Looks great. Breathing comfortably. Objective Vital Signs Date Time Temp Pulse Resp B/P Pulse Ox O2 Delivery O2 Flow Rate FiO2 03/05/17 12:00 98.6 64 18 135/65 98 03/05/17 07:00 Nasal Cannula 2.00 Intake and Output 03/04/17 03/04/17 03/04/17 07:59 15:59 23:59 Intake Total 2575 ml 1347 ml Output Total 1250 ml 1180 ml Balance 1325 ml 167 ml Result Diagram: 03/05/17 0509 03/05/17 0509 Objective Remarks Wt 239 lbs Gen: Comfortable. Alert. Head: Normal. Neck: Supple, airway widely patent. Lungs; Clear, no wheezes or crackles, comfortable. Heart: NL S1S2, no m,r, no JVD. Abdomen: Post-surgical, nondistended, quiet, voluntary guarding only. Extremities: Warm, well perfused. No edema or cyanosis Neuro: Alert, O X 3, controls airway well, Moves 4 limbs to command. A/P Assessment and Plan Assessment: 1. S/P robotic partial right nephrectomy. 2. Hypertension. 3. Active smoking history. 4. Hyperglycemia. Plan: 1. IS q2h. 2. HOB up 30 degrees. 3. SCDs. 4. Protonix. 5. Continue beta latanya. 6. Supplement with labetalol prn. 7. Continue norvasc. 8. Follow I&O closely. 9. Loose SSI coverage. Overall impression: Warm and well perfused after partial nephrectomy. Stable respiratory and hemodynamic function. OK to transfer out. Jose Montiel MD Mar 05, 2017 14:05
[2017-03-05] MEDS: PANTOPRAZOLE SODIUM 40 MG VIAL IV PUSH SCH (14:08)
[2017-03-06 00:30] VITALS: BP 154/81; PULSE 71; RESP 16; TEMP 97.2; O2SAT 95
[2017-03-06] MEDS: ACETAMINOPHEN 1000 MG/100 ML VIAL IV SCH ×3 (02:39→12:48)
[2017-03-06 04:00] VITALS: BP 135/73; PULSE 85; RESP 19; TEMP 97.3; O2SAT 94
[2017-03-06] MEDS: SODIUM CHLOR 0.9% 1000 ML INJ 1,000 ML IV SCH ×2 (05:00→12:42)
[2017-03-06] MEDS: INSULIN ASPART SUPPLEMENTAL SCALE SQ SCH ×3 (07:00→16:00)
[2017-03-06 07:50] VITALS: BP 166/77; PULSE 71; RESP 18; TEMP 98.1; O2SAT 97
[2017-03-06] MEDS: DOCUSATE SODIUM 100 MG CAP PO SCH (09:00)
--- NOTE | 2017-03-06 09:05 | HHI.PR ---
Subjective Remarks resting comfortably with no distress. denies pain. no fever. no new complaints. Objective Vitals Vital Signs Date Time Temp Pulse Resp B/P Pulse Ox O2 Delivery O2 Flow Rate FiO2 03/06/17 07:50 98.1 71 18 166/77 97 03/06/17 04:00 97.3 85 19 135/73 94 03/06/17 00:30 97.2 71 16 154/81 95 03/05/17 22:00 70 03/05/17 20:00 98.2 86 18 171/73 96 03/05/17 20:00 90 03/05/17 19:00 97 Room Air 03/05/17 18:00 70 03/05/17 16:00 98.4 87 15 149/78 98 03/05/17 16:00 87 03/05/17 14:35 18 03/05/17 14:00 80 03/05/17 12:00 98.6 64 18 135/65 98 03/05/17 12:00 79 03/05/17 10:00 79 I/O 03/05/17 03/05/17 03/05/17 03/06/17 03/06/17 03/06/17 07:00 15:00 23:00 07:00 15:00 23:00 Intake Total 1028 ml 486 ml 555 ml 350 ml Output Total 595 ml 1340 ml 30 ml Balance 433 ml -854 ml 525 ml 350 ml Intake Oral 150 ml 350 ml IV Total 1028 ml 336 ml 555 ml Output Urine Total 575 ml 1300 ml Drainage Total 20 ml 40 ml 30 ml # Voids 5 1 # Bowel Movements 0 1 0 0 Result Diagram: 03/05/17 0509 03/05/17 0509 Imaging Last Impressions Chest X-Ray 03/04/17 0000 Signed Impressions: Service Date/Time: Saturday, March 04, 2017 11:41 - CONCLUSION: Interval placement of a left subclavian central venous catheter with position indicated above. No evidence of pneumothorax. Girish Vences MD Objective Remarks GENERAL: This is a well-nourished, well-developed patient, in no apparent distress. CARDIOVASCULAR: Regular rate and regular rhythm without murmurs, gallops, or rubs. RESPIRATORY: Clear to auscultation. Breath sounds equal bilaterally. No wheezes , rales, or rhonchi. GASTROINTESTINAL: Abdomen soft, non-tender, nondistended. Normal, active bowel sounds MUSCULOSKELETAL: Extremities without clubbing, cyanosis, or edema. NEURO: Alert & Oriented x4 to person, place, time, situation. Moves all ext x4 Medications and IVs Current Medications Lactated Ringer's 1,000 ml @ 30 mls/hr Q24H PRN IV SEE LABEL COMMENTS Last administered on 03/04/17 06:13; Start 03/04/17 at 05:45; Stop 03/04/17 at 12:16; Status DC Sodium Chloride (NS 500 ml Inj) 500 ml @ 30 mls/hr [id number] PRN IV SEE LABEL COMMENTS; Start 03/04/17 at 05:45; Stop 03/07/17 at 05:44 Metoprolol Tartrate (Lopressor) 25 mg RUBBER PRESS OPERATOR PRN PO SEE LABEL COMMENTS; Start 03/04/17 at 05:45; Stop 03/07/17 at 05:44 Povidone Iodine (Betadine 5% Antisepsis Kit) 1 applic RUBBER PRESS OPERATOR PRN EACH NARE SEE LABEL COMMENTS Last administered on 03/04/17 06:13; Start 03/04/17 at 05:45; Stop 03/07/17 at 05:44 Chlorhexidine Gluconate (Chlorhexidine 2% Cloth) 3 pack RUBBER PRESS OPERATOR PRN TOPICAL SEE LABEL COMMENTS Last administered on 03/04/17 06:13; Start 03/04/17 at 05:45; Stop 03/07/17 at 05:44 Insulin Human Regular See Protocol Table ... RUBBER PRESS OPERATOR PRN SQ SEE PROTOCOL TABLE ; Start 03/04/17 at 05:45; Stop 03/04/17 at 15:24; Status DC Cefazolin Sodium/ Dextrose (Ancef 2 Gm Premix) 50 ml @ 150 mls/hr RUBBER PRESS OPERATOR IV Last administered on 03/04/17 08:15; Start 03/04/17 at 05:45; Stop 03/07/17 at 05 :44 Midazolam HCl (Versed Inj) 2 mg STK-MED ONCE .ROUTE ; Start 03/04/17 at 06:50; Stop 03/04/17 at 06:51; Status DC Dexamethasone Sodium Phosphate (Decadron Inj) 4 mg STK-MED ONCE .ROUTE ; Start 03/04/17 at 06:50; Stop 03/04/17 at 06:51; Status DC Famotidine (Pepcid Inj) 20 mg STK-MED ONCE .ROUTE ; Start 03/04/17 at 06:50; Stop 03/04/17 at 06:51; Status DC Mannitol (Mannitol Inj) 25 gm NOW ONCE IV ; Start 03/04/17 at 08:45; Stop at 08:46; Status DC Mannitol (Mannitol Inj) 12.5 gm STK-MED ONCE IV Last administered on 03/04/17 10:00; Start 03/04/17 at 10:00; Stop 03/04/17 at 10:16; Status DC Sugammadex Sodium 200 mg 200 mg STK-MED ONCE IV PUSH ; Start 03/04/17 at 10:51; Stop 03/04/17 at 10:52; Status DC Sodium Chloride (NS 1000 ml Inj) 1,000 ml @ 125 mls/hr Q8H IV Last administered on 03/05/17 20:21; Start 03/04/17 at 13:00 Morphine Sulfate (Morphine Inj) 4 mg Q3H PRN IV PUSH BREAKTHROUGH PAIN; Start 03/04/17 at 13:00; Stop 03/05/17 at 13:27; Status DC Acetaminophen (Ofirmev Inj) 1,000 mg Q6H IV Last administered on 03/06/17 02: 39; Start 03/04/17 at 14:00 Oxycodone HCl 10 mg 10 mg Q4H PRN PO PAIN SCALE 5 TO 10; Start 03/04/17 at 13:00 Cefazolin Sodium/ Sodium Chloride (Ancef Inj/NS Inj) 100 ml @ 200 mls/hr Q8H IV Last administered on 03/05/17 08:21; Start 03/04/17 at 16:00; Stop 03/05/17 at 13:27; Status DC Docusate Sodium (Colace) 100 mg BID PO Last administered on 03/05/17 08:19; Start 03/04/17 at 21:00 Pantoprazole Sodium (Protonix Inj) 40 mg Q24H IV PUSH Last administered on 03/05 14:08; Start 03/04/17 at 13:00 Ondansetron HCl (Zofran Inj) 4 mg Q6HR PRN IV PUSH NAUSEA OR VOMITING; Start at 13:00 Amlodipine Besylate (Norvasc) 20 mg BID PO Last administered on 03/05/17 08:19 ; Start 03/05/17 at 09:00 Carvedilol (Coreg) 12.5 mg BID PO Last administered on 03/05/17 20:21; Start 03/05/17 at 09:00 Enalapril Maleate (Vasotec) 20 mg BID PO Last administered on 03/05/17 20:22; Start 03/05/17 at 09:00 Fentanyl Citrate (fentaNYL INJ) 500 mcg STK-MED ONCE .ROUTE ; Start 03/04/17 at 11:38; Stop 03/04/17 at 11:39; Status DC Midazolam HCl (Versed Inj) 2 mg STK-MED ONCE .ROUTE ; Start 03/04/17 at 11:39; Stop 03/04/17 at 11:40; Status DC Miscellaneous Information ALL NURSING DEPARTME... UNSCH PRN .XX SEE LABEL COMMENTS; Start 03/04/17 at 11:29; Stop 03/05/17 at 11:28; Status DC Labetalol HCl (Trandate Inj) 20 mg Q3H PRN IV PUSH SBP > 160 Last administered on 03/04/17 16:12; Start 03/04/17 at 14:45 Dextrose (D50w (Vial) Inj) 50 ml UNSCH PRN IV HYPOGLYCEMIA-SEE COMMENTS; Start 03/04/17 at 15:00 Glucagon (Glucagon Inj) 1 mg UNSCH PRN OTHER HYPOGLYCEMIA-SEE COMMENTS; Start 03/04/17 at 15:00 Insulin Aspart (NovoLOG SUPPLEMENTAL SCALE) 1 ACHS SLIDING SCALE SQ ; Start 03/04/17 at 16:00 Metoprolol Tartrate (Lopressor Inj) 5 mg Q6H IV PUSH Last administered on 03:35; Start 03/04/17 at 16:00; Stop 03/05/17 at 04:01; Status DC Hydralazine HCl (Apresoline Inj) 10 mg Q1H PRN IV PUSH SBP > 165 Last administered on 03/05/17 14:53; Start 03/04/17 at 16:00 Metoprolol Tartrate (Lopressor) 25 mg ONCE ONCE PO Last administered on 8/9/ 17at 16:22; Start 03/04/17 at 16:00; Stop 03/04/17 at 16:01; Status DC A/P Assessment and Plan A/P 1. S/P robotic partial right nephrectomy. management per Urology. 2. Hypertension. continue amlodipine,coreg and lisinopril. Discharge Planning dc planning per Urology. Sharlene Ochoa MD Mar 06, 2017 09:05
[2017-03-06] MEDS ORDERED: ASPI81TA5 PO (09:07)
[2017-03-06] MEDS: CARVEDILOL 12.5 MG TAB PO SCH (11:08)
[2017-03-06] MEDS: ENALAPRIL MALEATE 10 MG TAB PO SCH (11:08)
--- NOTE | 2017-03-06 11:20 | MP ---
cc: SHANTEL GERARD MD DATE OF SURGERY: 03/04/2017. PREOPERATIVE DIAGNOSIS: Suspicious lower pole right renal mass. POSTOPERATIVE DIAGNOSIS: Suspicious lower pole right renal mass. OPERATIVE PROCEDURE PERFORMED: Right robotic partial nephrectomy with intraoperative ultrasound. SURGEON: Shantel Gerard MD. ANESTHESIA: General. COMPLICATIONS: None. PREOPERATIVE ANTIBIOTICS: Ancef 2 grams IV. DRAINS: 1. A 19-[place] Benjamin-Crandall drain to bulb suction. 2. A Nava catheter. ESTIMATED BLOOD LOSS: 150 mL. SPECIMENS: Right renal mass for frozen section. FLUIDS: Two liters of crystalloids. INDICATIONS FOR THE PROCEDURE: The patient is a 71-year-old female who was found to have an incidental right lower pole renal mass approximately 2 cm in size and suspicious for a renal cell carcinoma. Treatment options were discussed including active surveillance versus partial nephrectomy versus radical nephrectomy. The risks, benefits, and alternatives of each procedure were explained to the patient including the risks of renal failure, dialysis and the risk of the mass being benign. The patient wanted to proceed with surgical removal. After the risks, benefits, and alternatives were explained, the patient elected to proceed and informed consent was obtained. DESCRIPTION OF THE PROCEDURE IN DETAIL: The patient was properly identified and brought back to the operating room and laid on the cystoscopy table. The appropriate time out was performed under the direction of anesthesiology. The patient was then induced under general anesthetic and preoperative antibiotics with Ancef 2 grams IV given before the start of the procedure. The patient was then placed in the left lateral decubitus position with the right side up. All pressure points were padded. After all lines and a Nava catheter had been placed, the patient was then prepped and draped in the usual sterile fashion. Due to the patient's morbid obesity, a stab incision was made superior and quite lateral to the umbilicus more lateral to avoid some of the abdominal fat. A Veress needle was then used to gain access to the abdominal cavity and achieve pneumoperitoneum. Under direct visualization, I then placed a long 12 mm camera in the abdominal cavity. The abdominal cavity was carefully inspected. There was no evidence of any intraabdominal injury. The remaining portion was then placed under direct visualization including 8 mm robotic ports were __ off the camera aport, a mm liver retraction port superior and in line with the camera port as well as a 12 mm port inferior to the camera port. A long locking grasper was then carefully placed under direct visualization into the abdominal cavity and used to retract the liver cephalad. It was then locked to the abdominal wall. At this time, the robot was then brought into position. I began by taking down the white line of Toldt and reflecting the colon medially. This exposed the retroperitoneum. She did not have a significant amount of perirenal fat. The duodenum was easily identified and this was Kocherized to expose the IVC. I went caudal and I was able to develop a plane between the IVC and identify the gonadal vein. I then retracted the kidney anteriorly and followed the IVC cephalad to the attachment of the gonadal vein to the IVC. This was carefully taken with a robotic vessel sealer. Then I carefully marched up until I came across the renal hilum. There seemed to be one single artery and vein corresponding to the CT scan. Each one was carefully dissected circumferentially. The small right adrenal vein was also seen coming off the right renal vein. At this time, I then dissected the fat off the kidney paying particular attention to the lower pole where the mass was seen on CT scan. I did come across the mass posteromedial to the location on the kidney consistent with the mass found on CT. Intraoperative ultrasound was then used to identify this mass. At this time, 12.5 grams of Mannitol were given by anesthesia. After 10 minutes, a laparoscopic bulldog was used to clamp the renal artery. The mass was then excised from the kidney with cold cut scissors and electrocautery. It was placed in a specimen bag for later removal. At this time, I then closed the renal defect with a running 2-0 Stratafix and went back on itself. There appeared to be no evidence of any significant oozing. The artery was unclamped for a total clamp time of 13 minutes. There was minimal oozing. A single #0 Vicryl stitch was then placed for further hemostasis. At this time, the mass was then sent down to pathology for frozen section. The intraabdominal pressure was then dropped down to 7 mmHg. No bleeding was seen. 3 grams of Blayne was then given. At this time, the 19[place] Benjamin-Crandall drain was placed through the left-hand robotic port and it was secured with #0 nylon. The kidney itself appeared to be hemostatic. There was no bleeding seen from the repaired defect of the kidney. The guardian vein appeared to be intact as well. At this time, the robot was undocked. All ports were removed under direct visualization. The skin incisions were then closed with 4-0 Monocryl and reinforced with Dermabond. At this time, pathology called back from the lab and said grossly they did not see evidence of a tumor at this time but that they would go ahead and section it and further evaluation will follow. This concluded the procedure. The patient was extubated and sent to recovery in stable condition. She will be admitted to the surgical intensive care unit overnight for observation. Shantel Gerard MD EMAnthony/ELMIRA /12:50 PM /10:52 AM
[2017-03-06 11:40] VITALS: BP 181/78; PULSE 86; RESP 18; TEMP 97.7; O2SAT 98
[2017-03-06] MEDS: PANTOPRAZOLE SODIUM 40 MG VIAL IV PUSH SCH (12:48)
[2017-03-06 16:00] VITALS: BP 138/80; PULSE 93; RESP 18; TEMP 98.7; O2SAT 97
[2017-03-06] MEDS ORDERED: DOCU1CAP39 PO (16:37)
[2017-03-06] MEDS ORDERED: PERC5TAB12 PO (16:37)
--- NOTE | 2017-03-10 16:42 | HHI.DS ---
Discharge Summary Admission Date Mar 04, 2017 at 11:09 Discharge Date: Mar 06, 2017 Admitting Diagnosis Right Renal Mass Procedures Right Robotic Partial Nephrectomy with intraoperative ultrasound. Hospital Course 71 yo female with suspicious right renal mass. She underwent a right robotic partial nephrectomy on 03/04. She did very well postoperatively. Her pain was controlled. Her bowel function returned immediately. Her PHIL Creatinine was normal so her PHIL drain was removed. Hemoglobin remained stable. She was discharged home 2 days after her surgery. Pt Condition on Discharge: Good Discharge Disposition: Discharge Home Discharge Instructions DIET: Follow Instructions for: Heart Healthy Diet Activities you can perform: Shower Only-No Bath Additional Activity Instructio: No heavy lifting > 15 lbs x 4 weeks No strenous activity x 4 weeks but be active New Medications: Oxycodone-Acetaminophen (Percocet) 5-325 mg Tab 2 TAB PO Q6H PRN PAIN #30 Ref 0 TAB Docusate Sodium (Dok) 100 Mg Cap 100 MG PO BID Constipation #30 Ref 0 CAP Changed Medications: Aspirin DR (Aspirin DR) 81 Mg Tabdr 81 MG PO DAILY when ok with Urology. antiplatelet. Days 30 Ref 0 TAB ( Medication details modified) Continued Medications: Amlodipine (Amlodipine) 10 Mg Tab 20 MG PO BID Blood Pressure Management #30 Ref 0 TAB Carvedilol (Carvedilol) 12.5 Mg Tab 12.5 MG PO BID #60 Ref 0 TAB Enalapril (Enalapril) 20 Mg Tab 20 MG PO BID #30 Ref 0 TAB Pantoprazole (Protonix) 40 Mg Tab 40 MG PO DAILY Reflux #30 Ref 0 TAB Renard Bradley MD Mar 10, 2017 16:42
== END 2017-03-06 18:25 | disposition home or self-care (01) ==
LOC: HSDC 05:18 → INTOOBSV 11:09 → HSDI 11:09 → N03A 14:45 → N06B 03-05 23:26
PROVIDERS: ADMIT Urology; ATTEND Urology
DX: N26.9 Renal sclerosis, unspecified (principal); I11.0 Hypertensive heart disease with heart failure; I50.9 Heart failure, unspecified; R73.9 Hyperglycemia, unspecified; F17.210 Nicotine dependence, cigarettes, uncomplicated; E66.09 Other obesity due to excess calories; Z68.42 Body mass index [BMI] 45.0-49.9, adult; Z79.82 Long term (current) use of aspirin
CPT/HCPCS: 00862; 50543; 71010; 76998; 80048; 82570; 82948; 85025; 85027; 85610; 86850; 86900; 86901; 86920; 88307; 88331; 94150; 96365; 96375; 96376; 97161; C9113; G0378; G8987; G8988; J0131; J0360; J0690; J1100; J2150; J2250; J2370; J2405; J3010; J7030; J7040; J7120